=== PATIENT | female | born 1985 | race Two or more races ===

== ENCOUNTER → 2020-11-09 08:17 | Outpatient (BNVA) | payer OTHER, SELFPAY | PROVIDERS: PCP Internal Medicine; Visit Provider Physician Assistant ==

== ENCOUNTER 2022-02-21 11:01 | Day surgery (SDC) | payer OTHER, MEDICAID, SELFPAY ==
[2022-02-21 11:59] VITALS: BP 134/85; PULSE 100; RESP 18; TEMP 36.6; O2SAT 99
--- NOTE | 2022-02-21 13:26 | MHC.SHP ---
Pre-Procedural Eval Section A Date of Service: 02/21/22 The patient is an INPATIENT: No The History & Physical has been completed within 30 days and I have reviewed it.: Yes Section B Chief Complaint: TR trigger finger Allergies: Allergies Allergy/AdvReac Type Severity Reaction Status Date / Time No Known Allergies Allergy Verified 02/21/22 11:58 [No Known Allergies*] Plan I have reviewed the history and physical and performed a pertinent physical examination on my patient. No changes have occurred unless specified.
--- NOTE | 2022-02-21 13:26 | W.PM.OPN ---
Operative Note Operative Note Date of Service: 02/21/22 Narrative: Operative Note Preop diagnosis: 1. Left ring finger Trigger finger Postop diagnosis: 1. Left ring finger Trigger finger Procedure: 1. Left ring finger A1 cele release Surgeon: Elizabeth Cabrera MD Anesthesia: local block using 1% lidocaine with epinephrine Findings: No locking or catching after A1 cele release EBL: Less than 5 mL Tourniquet time: None Specimens: None Complications: None Disposition: Brought to recovery room in stable condition Plan: Follow-up for 10-14 days for wound check and suture removal Indications: The patient is 36 years old, with a left ring finger trigger finger that has been unresponsive to nonoperative management. The risks and benefits of operative treatment including but not limited to risk of damage to blood vessels, nerves, tendons, infection, persistent pain, persistent symptoms, recurrence or possible need for additional surgery were discussed with the patient and the patient wishes to proceed with surgery. Procedure: Once consent was obtained a local block was performed in the preop area using a combination of 1% lidocaine with epinephrine. The patient was then brought back to the operating suite and placed on the operative table in supine position. A tourniquet was applied to the proximal aspect of the left upper extremity and the limb was prepped and draped in a standard surgical fashion. Once assured that we had a good block, a 1.5 cm oblique incision was made centered over the A1 cele of the left ring finger . The incision was made through the skin to the subcutaneous tissues using a #15 blade. Careful dissection was made down to the level of the A1 cele using tenotomy scissors, with care being taken to protect the nearby neurovascular structures. A longitudinal incision was made in the A1 cele 1st using a #15 blade, then using tenotomy scissors under direct visualization. The A1 cele was noted to be thickened. Following our A1 cele release, we no longer saw any locking or catching of the digit with flexion and extension. Once satisfied with our A1 cele release the wound was copiously irrigated with normal saline and hemostasis was obtained with a brief period of local pressure. The skin edges were reapproximated with some 5.0 nylon suture material and a sterile dressing was applied. The patient appears to have tolerated the procedure well and with no complications. All digits were well vascularized at the conclusion of the case.
[2022-02-21 14:15] VITALS: BP 135/72; PULSE 102; RESP 20; O2SAT 99
== END 2022-02-21 14:21 | disposition home or self-care (01) ==
PROVIDERS: PCP Internal Medicine; Visit Provider Orthopaedic Surgery
PROC: (CPT 26055; principal; 2022-02-21 14:00)
DX: M65.342 Trigger finger, left ring finger (principal); E10.8 Type 1 diabetes mellitus with unspecified complications; Z79.4 Long term (current) use of insulin; Z96.41 Presence of insulin pump (external) (internal); N85.6 Intrauterine synechiae; E66.9 Obesity, unspecified; Z68.31 Body mass index [BMI] 31.0-31.9, adult; Z96.82 Presence of neurostimulator
CPT/HCPCS: 26055; J0171

== ENCOUNTER 2022-04-10 20:50 | Emergency (ER) | payer OTHER, MEDICAID, SELFPAY ==
[2022-04-10 20:58] VITALS: BP 157/78; PULSE 101; RESP 16; TEMP 37; O2SAT 100; BMI 29.2
--- NOTE | 2022-04-10 21:01 | ECG_ITS ---
Test Reason : PALPITATIONS Blood Pressure : / mmHG Vent. Rate : 103 BPM Atrial Rate : 103 BPM P-R Int : 116 ms QRS Dur : 072 ms QT Int : 350 ms P-R-T Axes : 055 036 026 degrees QTc Int : 458 ms Sinus tachycardia with Premature ventricular complexes or Fusion complexes Otherwise normal ECG When compared with ECG of 22-DEC-2017 20:11, Fusion complexes are now Present Premature ventricular complexes are now Present Nonspecific T wave abnormality no longer evident in Anterolateral leads Referred By: Generic ED Physician Electronically Signed By:LAKE PUCKETT
[2022-04-10 21:31] LABS: MANUAL DIFF FLAG NO
[2022-04-10 21:33] LABS: Basophils Percent Auto 0.6 % (0-2); Eosinophils Absolute Auto 0.2 X10*3/uL (0.0-0.4); Eosinophils Percent Auto 2.1 % (0-4); Hematocrit 34.8 % (37.0-47.0); Hemoglobin 11.7 g/dl (12.0-16.0); Imm Gran Abs Auto 0.03 X10*3/uL (0.00-0.03); Imm Gran Pct Auto 0.4 % (0.0-0.4); Lymphocytes Absolute Auto 2.5 X10*3/uL (1.2-4.9); Lymphocytes Percent Auto 34.6 % (20-40); Mean Corpuscular HGB Conc 33.6 g/dl (31.0-35.0); Mean Corpuscular Hemoglobin 29.8 pg (27.0-33.0); Mean Corpuscular Volume 88.5 fL (80.0-98.0); Mean Platelet Volume 9.3 fL (9.4-12.3); Monocytes Absolute Auto 0.5 X10*3/uL (0.1-1.2); Monocytes Percent Auto 7.2 % (2-11); Neutrophils Percent Auto 55.1 % (45-73); Platelet Count 289 X10*3/uL (160-400); Red Blood Count 3.93 X10*6/uL (4.20-5.50); Red Cell Distribution Width 12.9 % (11.0-16.0); White Blood Count 7.3 X10*3/uL (4.8-10.8)
[2022-04-10 21:52] LABS: Anion Gap 15 (12-20); Blood Urea Nitrogen 18 mg/dL (9-16); Calcium 9.2 mg/dL (8.4-10.2); Carbon Dioxide 23 mmol/L (22-29); Chloride 105 mmol/L (96-108); Creatinine Clr Calc Pharmacy 78.3; Estimated Glomerular Filt Rate > 60; Glucose Random 439 mg/dL (60-115); Potassium 4.1 mmol/L (3.3-5.1); Sodium 139 mmol/L (135-145)
[2022-04-10 21:54] LABS: Troponin-I High Sensitivity < 3.5 ng/L (<3.5-17.0)
[2022-04-10 22:07] LABS: Appearance Urine Clear; Color Urine Yellow; Glucose Urine UA >=1000 mg/dL (Negative); Leukocyte Esterase Urine Negative (Negative); Nitrite Urine Negative (Negative); Specific Gravity - Urine >= 1.030 (1.005-1.025); Urine Blood Negative (Negative); Urine Ketones Negative (Negative); Urine Protein Negative (Neg-Trace)
[2022-04-10 22:08] LABS: UPreg QC Valid YES; Urine Pregnancy NEGATIVE (NEGATIVE)
[2022-04-10 22:13] LABS: Bacteria Urine None Seen (None Seen); Hyaline Casts Urine 0-2 /LPF (0-2); RBC Urine 0-2 /HPF (0-2); Squamous Epithelial Cell Urine 0-2 /HPF (0-2); WBC Urine 0-5 /HPF (0-5)
== END 2022-04-11 00:20 | disposition left against medical advice (07) ==
LOC: HO.ED 04-11 00:19
PROVIDERS: Emergency Provider Emergency Medicine; PCP Nurse Practitioner Family
DX: R00.2 Palpitations (principal); R00.0 Tachycardia, unspecified; I49.3 Ventricular premature depolarization; E10.9 Type 1 diabetes mellitus without complications
CPT/HCPCS: 36415; 80048; 81001; 81025; 84484; 85025; 93005; 99283

== ENCOUNTER 2022-07-25 11:28 | Day surgery (SDC) | payer OTHER, MEDICAID, SELFPAY ==
--- NOTE | 2022-07-25 10:24 | W.PM.OPN ---
Operative Note Operative Note Date of Service: 07/25/22 Narrative: Operative Note Preop diagnosis: 1. Right middle finger Trigger finger Postop diagnosis: 1. Right middle finger Trigger finger Procedure: 1. Right middle finger A1 cele release Surgeon: Elizabeth Cabrera MD Anesthesia: local block using 1% lidocaine with epinephrine Findings: No locking or catching after A1 cele release EBL: Less than 5 mL Tourniquet time: None Specimens: None Complications: None Disposition: Brought to recovery room in stable condition Plan: Follow-up for 10-14 days for wound check and suture removal Indications: The patient is 37 years old, with a right middle finger trigger finger that has been unresponsive to nonoperative management. The risks and benefits of operative treatment including but not limited to risk of damage to blood vessels, nerves, tendons, infection, persistent pain, persistent symptoms, recurrence or possible need for additional surgery were discussed with the patient and the patient wishes to proceed with surgery. Procedure: Once consent was obtained a local block was performed in the preop area using a combination of 1% lidocaine with epinephrine. The patient was then brought back to the operating suite and placed on the operative table in supine position. A tourniquet was applied to the proximal aspect of the right upper extremity and the limb was prepped and draped in a standard surgical fashion. Once assured that we had a good block, a 1.5 cm oblique incision was made centered over the A1 cele of the right middle finger . The incision was made through the skin to the subcutaneous tissues using a #15 blade. Careful dissection was made down to the level of the A1 cele using tenotomy scissors, with care being taken to protect the nearby neurovascular structures. A longitudinal incision was made in the A1 cele 1st using a #15 blade, then using tenotomy scissors under direct visualization. The A1 cele was noted to be thickened. Following our A1 cele release, we no longer saw any locking or catching of the digit with flexion and extension. Once satisfied with our A1 cele release the wound was copiously irrigated with normal saline and hemostasis was obtained with a brief period of local pressure. The skin edges were reapproximated with some 5.0 nylon suture material and a sterile dressing was applied. The patient appears to have tolerated the procedure well and with no complications. All digits were well vascularized at the conclusion of the case.
[2022-07-25 12:11] VITALS: BMI 29.2
--- NOTE | 2022-07-25 13:12 | MHC.SHP ---
Pre-Procedural Eval Section A Date of Service: 07/25/22 The patient is an INPATIENT: No Changes since office visit: No Cold of Flu in the past 2 weeks, No New Medical Problems, No Changes in Medication and No Patient answered all questions The History & Physical has been completed within 30 days and I have reviewed it.: Yes Section B Chief Complaint: Trigger finger, right middle finger Allergies: Allergies Allergy/AdvReac Type Severity Reaction Status Date / Time No Known Allergies Allergy Verified 06/25/22 12:28 [No Known Allergies*] Plan I have reviewed the history and physical and performed a pertinent physical examination on my patient. No changes have occurred unless specified. Time Spent With Patient Time: Total time managing care of this patient today ____ minutes.
[2022-07-25 14:06] VITALS: BP 149/89; PULSE 97; RESP 18; O2SAT 100
== END 2022-07-25 14:15 | disposition home or self-care (01) ==
PROVIDERS: Visit Provider Orthopaedic Surgery
PROC: (CPT 26055; principal; 2022-07-25 14:10)
DX: M65.331 Trigger finger, right middle finger (principal); E10.8 Type 1 diabetes mellitus with unspecified complications; Z96.41 Presence of insulin pump (external) (internal); Z79.4 Long term (current) use of insulin; E66.9 Obesity, unspecified; Z68.29 Body mass index [BMI] 29.0-29.9, adult; N85.6 Intrauterine synechiae; Z96.82 Presence of neurostimulator; Z87.891 Personal history of nicotine dependence
CPT/HCPCS: 26055; J0171

== ENCOUNTER → 2022-08-07 13:52 | Outpatient (BNVA) | payer OTHER, MEDICAID, SELFPAY | PROVIDERS: Visit Provider Orthopaedic Surgery | DX: M65.331 Trigger finger, right middle finger (principal) ==

== ENCOUNTER 2022-12-09 23:31 | Emergency (ER) | payer OTHER, MEDICAID, SELFPAY ==
[2022-12-09 23:36] VITALS: BP 159/90; PULSE 80; PULSE 91; RESP 18; TEMP 36.4; O2SAT 95; O2SAT 99; BMI 25.8
[2022-12-10 01:18] LABS: MANUAL DIFF FLAG NO
[2022-12-10 01:24] LABS: Basophils Absolute Auto 0.1 X10*3/uL (0.0-0.2); Basophils Percent Auto 0.4 % (0-2); Eosinophils Absolute Auto 0.1 X10*3/uL (0.0-0.4); Eosinophils Percent Auto 0.3 % (0-4); Hematocrit 39.1 % (37.0-47.0); Hemoglobin 13.1 g/dl (12.0-16.0); Imm Gran Abs Auto 0.11 X10*3/uL (0.00-0.03); Imm Gran Pct Auto 0.6 % (0.0-0.4); Lymphocytes Absolute Auto 1.6 X10*3/uL (1.2-4.9); Lymphocytes Percent Auto 9.6 % (20-40); Mean Corpuscular HGB Conc 33.5 g/dl (31.0-35.0); Mean Corpuscular Hemoglobin 29.4 pg (27.0-33.0); Mean Corpuscular Volume 87.7 fL (80.0-98.0); Mean Platelet Volume 9.4 fL (9.4-12.3); Monocytes Absolute Auto 0.9 X10*3/uL (0.1-1.2); Monocytes Percent Auto 5.2 % (2-11); Neutrophils Absolute Auto 14.3 x10*3/uL (2.0-8.3); Neutrophils Percent Auto 83.9 % (45-73); Platelet Count 317 X10*3/uL (160-400); Red Blood Count 4.46 X10*6/uL (4.20-5.50); Red Cell Distribution Width 12.7 % (11.0-16.0)
--- NOTE | 2022-12-10 01:37 | MHC.EDTECH ---
Patient ambulated to BR with no assist to give UA, labs drawn and vitals were obtained. Call mancini in reach
[2022-12-10 01:43] VITALS: BP 153/87; PULSE 88; RESP 18; TEMP 36.5; O2SAT 100
[2022-12-10 01:52] LABS: Appearance Urine Cloudy; Color Urine Yellow; Glucose Urine UA 500 mg/dL (Negative); Leukocyte Esterase Urine Negative (Negative); Nitrite Urine Negative (Negative); PH 5.5 (5.0-9.0); Specific Gravity - Urine >= 1.030 (1.005-1.025); UMIC TRIGGER UACC YES; Urine Blood Negative (Negative); Urine Ketones 80 mg/dL (Negative); Urine Protein 30 (1+) mg/dL (Neg-Trace)
[2022-12-10 01:54] LABS: UPreg QC Valid YES; Urine Pregnancy NEGATIVE (NEGATIVE)
[2022-12-10 02:00] LABS: Alanine Aminotransferase 15 U/L (0-31); Albumin Level 4.3 g/dL (3.5-5.0); Alkaline Phosphatase 81 U/L (39-117); Anion Gap 14 (12-20); Aspartate Amino Transferase 16 U/L (5-31); Bilirubin Direct 0.1 mg/dL (0.0-0.5); Bilirubin Total 0.4 mg/dL (0.0-1.0); Blood Urea Nitrogen 11 mg/dL (9-16); Calcium 9.4 mg/dL (8.4-10.2); Carbon Dioxide 26 mmol/L (22-29); Chloride 103 mmol/L (96-108); Creatinine Clr Calc Pharmacy 106.9; Estimated Glomerular Filt Rate > 60; Glucose Random 166 mg/dL (60-115); Lipase 9 U/L (8-78); Potassium 4.1 mmol/L (3.3-5.1); Sodium 139 mmol/L (135-145); Total Protein 6.9 g/dL (6.5-8.0)
[2022-12-10 02:10] LABS: Bacteria Urine 4+ (None Seen); Calcium Oxalate Crystals Urine Present; Hyaline Casts Urine 0-2 /LPF (0-2); RBC Urine 0-2 /HPF (0-2); WBC Urine 0-5 /HPF (0-5)
[2022-12-10 03:58] VITALS: BP 144/88; PULSE 95; RESP 13; TEMP 36.7; O2SAT 99
--- NOTE | 2022-12-10 05:17 | ED_ITS ---
HPI - Abdominal Pain General Chief Complaint: Abdominal Pain Stated Complaint: VOMITING Time Seen by Provider: 12/10/22 01:52 History of Present Illness HPI narrative: Patient is a 37 year old female, presents today with having nausea vomiting diarrhea. Patient has a long history of diabetes. Baseline is on insulin. No fever no chills. Diarrhea is brown in color. Vomiting mostly consistent with food. Patient from home. Related Data Home Medications Medication Instructions Recorded Confirmed blood sugar diagnostic #10 ea 11/09/20 11/09/20 cholecalciferol (vitamin D3) 50 50 mcg PO DAILY 11/09/20 11/09/20 mcg (2,000 unit) capsule insulin lispro 100 unit/mL subcut 11/09/20 11/09/20 subcutaneous solution Previous Rx's Medication Instructions Recorded ibuprofen 600 mg tablet 600 mg PO Q6-8H PRN pain #20 tabs 02/21/22 hydrocodone 5 mg-acetaminophen 325 1 tab PO Q4-6H PRN pain #5 tabs 07/25/22 mg tablet Allergies Allergy/AdvReac Type Severity Reaction Status Date / Time No Known Allergies Allergy Verified 08/07/22 14:08 [No Known Allergies*] Review of Systems Review of Systems Positive nausea vomiting diarrhea generalized malaise Yes all other systems are reviewed and are negative PMFSH Past Medical History Attestation statement: The following information was validated with the patient. Medical History Asherman's syndrome History of episiotomy Obesity (BMI 30.0-34.9) Sacral nerve stimulator present Type 1 diabetes Surgical History History of partial hysterectomy Hx of section Family History Family History Mother Heart disease Hypertension Father No problems noted. Brother No problems noted. Brother No problems noted. Sister No problems noted. Sister No problems noted. Daughter No problems noted. Social History Social History Alcohol intake: never Patient Tobacco Use Status: Former Tobacco user Smoked in Last 30 Days: No Use of substances other than those prescribed or required for medical reasons: No Advance Directives: No Advance Directives Information Provided: Yes Patient : No Current occupational status: employed Current occupation: population health coordinator, [employer] rt hand Physical Exam ED Vital Signs: Vital Signs - 24 hr 12/09/22 23:36 12/10/22 01:43 12/10/22 03:58 Temperature 97.5 F 97.7 F 98.0 F Pulse Rate 91 88 95 Respiratory Rate 18 18 13 Blood Pressure 159/90 H 153/87 H 144/88 H Pulse Oximetry 95 100 99 Oxygen Delivery Method Room Air Room Air Room Air 12/10/22 06:00 Temperature 98.2 F Pulse Rate 87 Respiratory Rate 13 Blood Pressure 146/79 H Pulse Oximetry 98 Oxygen Delivery Method Room Air BMI result Body Mass Index 25.8 Appearance: Alert. Oriented X3. No acute distress. Eyes: Pupils equal, round and reactive to light. ENT: Pharynx normal. Neck: Normal inspection. Neck supple. No lymph nodes noted. No crepitus CVS: Normal heart rate and rhythm. Pulses normal. Normal S1 and S2 Respiratory: No respiratory distress. Breath sounds normal. No Wheezing. No rales Abdomen: Soft and nontender. No rigidity. No distention. good BS x4 Skin: Skin warm and dry. Normal skin color. Normal skin turgor. Extremities: No lower extremity edema. Neurovascular intact to all extremities. No Lacerations. No Rash Neuro: Oriented X 3. No motor deficit. No sensory deficit. Moving all exter mities. No slurred speech Medical Decision Making Medical Decision Making [facility] Narrative: Patient has nausea vomiting diarrhea. On exam patient abdomen is soft nontender. Given IV fluid and also Zofran for nausea with good relief of symptoms. Patient's labs showed a glucose of 166 with a normal bicarb normal anion gap. No evidence for DKA. Patient's electrolytes are otherwise unremarkable. test is negative. Urine showed no signs of infection. Differential Diagnosis Diabetic ketoacidosis , UTI, Lab Data [facility] Lab Attestation statement: I reviewed the patient's lab results. 12/10/22 01:10 12/10/22 01:35 Labs: Lab Results 12/10/22 12/10/22 12/10/22 Range/Units 01:10 01:35 01:43 WBC 17.0 H (4.8-10.8) X10*3/uL RBC 4.46 (4.20-5.50) X10*6/uL Hgb 13.1 (12.0-16.0) g/dl Hct 39.1 (37.0-47.0) % MCV 87.7 (80.0-98.0) fL MCH 29.4 (27.0-33.0) pg MCHC 33.5 (31.0-35.0) g/dl RDW 12.7 (11.0-16.0) % Plt Count 317 (160-400) X10*3/uL MPV 9.4 (9.4-12.3) fL Immature Gran % (Auto) 0.6 H (0.0-0.4) % Neut % (Auto) 83.9 H (45-73) % Lymph % (Auto) 9.6 L (20-40) % [place] % (Auto) 5.2 (2-11) % Eos % (Auto) 0.3 (0-4) % Baso % (Auto) 0.4 (0-2) % Lymph # (Auto) 1.6 (1.2-4.9) X10*3/uL [place] # (Auto) 0.9 (0.1-1.2) X10*3/uL Eos # (Auto) 0.1 (0.0-0.4) X10*3/uL Baso # (Auto) 0.1 (0.0-0.2) X10*3/uL Abs Immat Gran (auto) 0.11 H (0.00-0.03) X10*3/uL Absolute Neuts (auto) 14.3 H (2.0-8.3) x10*3/uL Absolute Nucleated RBC 0.000 (0.0-0.012) X10*3/uL Nucleated RBC % (auto) 0.0 (0.0-0.2) /100WBC Sodium 139 (135-145) mmol/L Potassium 4.1 (3.3-5.1) mmol/L Chloride 103 (96-108) mmol/L Carbon Dioxide 26 (22-29) mmol/L Anion Gap 14 (12-20) BUN 11 (9-16) mg/dL Creatinine 0.72 (0.5-1.4) mg/dL Estim Creat Clear Calc 106.9 Estimated GFR > 60 Random Glucose 166 H (60-115) mg/dL Calcium 9.4 (8.4-10.2) mg/dL Total Bilirubin 0.4 (0.0-1.0) mg/dL Direct Bilirubin 0.1 (0.0-0.5) mg/dL AST 16 (5-31) U/L ALT 15 (0-31) U/L Alkaline Phosphatase 81 (39-117) U/L Total Protein 6.9 (6.5-8.0) g/dL Albumin 4.3 (3.5-5.0) g/dL Lipase 9 (8-78) U/L Urine Color Yellow Urine Appearance Cloudy Urine pH 5.5 (5.0-9.0) Ur Specific [place] >= 1.030 H (1.005-1.025) Urine Protein 30 (1+) H (Neg-Trace) mg/dL Urine Glucose (UA) 500 H (Negative) mg/dL Urine Ketones 80 (Negative) mg/dL Urine Blood Negative (Negative) Urine Nitrite Negative (Negative) Ur Leukocyte Esterase Negative (Negative) Urine RBC 0-2 (0-2) /HPF Urine WBC 0-5 (0-5) /HPF Ur Squamous Epith Cells 6-10 (0-2) /HPF Calcium Oxalate Crystal Present Urine Bacteria 4+ (None Seen) Hyaline Casts 0-2 (0-2) /LPF Urine Test (NEGATIVE) 12/10/22 Range/Units 01:43 WBC (4.8-10.8) X10*3/uL RBC (4.20-5.50) X10*6/uL Hgb (12.0-16.0) g/dl Hct (37.0-47.0) % MCV (80.0-98.0) fL MCH (27.0-33.0) pg MCHC (31.0-35.0) g/dl RDW (11.0-16.0) % Plt Count (160-400) X10*3/uL MPV (9.4-12.3) fL Immature Gran % (Auto) (0.0-0.4) % Neut % (Auto) (45-73) % Lymph % (Auto) (20-40) % [place] % (Auto) (2-11) % Eos % (Auto) (0-4) % Baso % (Auto) (0-2) % Lymph # (Auto) (1.2-4.9) X10*3/uL [place] # (Auto) (0.1-1.2) X10*3/uL Eos # (Auto) (0.0-0.4) X10*3/uL Baso # (Auto) (0.0-0.2) X10*3/uL Abs Immat Gran (auto) (0.00-0.03) X10*3/uL Absolute Neuts (auto) (2.0-8.3) x10*3/uL Absolute Nucleated RBC (0.0-0.012) X10*3/uL Nucleated RBC % (auto) (0.0-0.2) /100WBC Sodium (135-145) mmol/L Potassium (3.3-5.1) mmol/L Chloride (96-108) mmol/L Carbon Dioxide (22-29) mmol/L Anion Gap (12-20) BUN (9-16) mg/dL Creatinine (0.5-1.4) mg/dL Estim Creat Clear Calc Estimated GFR Random Glucose (60-115) mg/dL Calcium (8.4-10.2) mg/dL Total Bilirubin (0.0-1.0) mg/dL Direct Bilirubin (0.0-0.5) mg/dL AST (5-31) U/L ALT (0-31) U/L Alkaline Phosphatase (39-117) U/L Total Protein (6.5-8.0) g/dL Albumin (3.5-5.0) g/dL Lipase (8-78) U/L Urine Color Urine Appearance Urine pH (5.0-9.0) Ur Specific [place] (1.005-1.025) Urine Protein (Neg-Trace) mg/dL Urine Glucose (UA) (Negative) mg/dL Urine Ketones (Negative) mg/dL Urine Blood (Negative) Urine Nitrite (Negative) Ur Leukocyte Esterase (Negative) Urine RBC (0-2) /HPF Urine WBC (0-5) /HPF Ur Squamous Epith Cells (0-2) /HPF Calcium Oxalate Crystal Urine Bacteria (None Seen) Hyaline Casts (0-2) /LPF Urine Test NEGATIVE (NEGATIVE) Chronic Conditions Patient?s care impacted by: Diabetes Medications Administered Discontinued Medications Generic Name Dose Route Start Last Admin Trade Name Freq PRN Reason Stop Dose Admin Sodium Chloride 1,000 mls @ 999 mls/hr 12/10/22 05:15 12/10/22 06:42 Ns IV 12/10/22 06:15 Infused .Q1H1M RADHA Infusion Ondansetron HCl 4 mg 12/10/22 05:14 12/10/22 05:40 Ondansetron Hcl 4 Mg/2 Ml Vial IVPUSH 12/10/22 05:15 4 mg ONCE ONE Administration Discharge Plan Discharge Clinical Impression: Vomiting Patient Disposition: Home, Self-Care Instructions: Acute Nausea and Vomiting (ED) Prescriptions: No Action ibuprofen 600 mg tablet 600 mg PO Q6-8H PRN (Reason: pain) Qty: 20 0RF hydrocodone-acetaminophen 5-325 mg tablet 1 tab PO Q4-6H PRN (Reason: pain) Qty: 5 0RF Rx Instructions: Partial Fill upon patient request. insulin lispro 100 unit/mL solution subcut (DME) Accu-Chek Guide test strips Strip See Rx Instructions .ROUTE .MEDSUPPLY Qty: 10 Rx Instructions: As directed cholecalciferol (vitamin D3) 50 mcg (2,000 unit) capsule 50 mcg PO DAILY Referrals: [facility] [Primary Care Provider] - 2 days
[2022-12-10] MEDS: ondansetron HCL 4 MG/2 ML VIAL IVPUSH (05:40)
[2022-12-10] MEDS: 0.9 % Sodium Chloride 1,000 ML 999 ML IV (05:40)
[2022-12-10 06:00] VITALS: BP 146/79; PULSE 87; RESP 13; TEMP 36.8; O2SAT 98
== END 2022-12-10 06:59 | disposition home or self-care (01) ==
PROVIDERS: Emergency Provider Emergency Medicine Emergency Medical Services
DX: R11.2 Nausea with vomiting, unspecified (principal); E10.8 Type 1 diabetes mellitus with unspecified complications; Z79.4 Long term (current) use of insulin
CPT/HCPCS: 36415; 80048; 80076; 81001; 81025; 83690; 85025; 96361; 96374; 99284; J2405

== ENCOUNTER 2023-05-06 16:24 | Outpatient (REF) | payer OTHER, MEDICAID, SELFPAY ==
[2023-05-06 17:50] LABS: Appearance Urine Clear; Color Urine Yellow; Glucose Urine UA 100 mg/dL (Negative); Leukocyte Esterase Urine Small (1+) (Negative); Nitrite Urine Negative (Negative); PH 6.5 (5.0-9.0); UMIC TRIGGER UACC YES; Urine Blood Negative (Negative); Urine Ketones 15 mg/dL (Negative); Urine Protein Negative (Neg-Trace)
[2023-05-06 17:55] LABS: Bacteria Urine 3+ (None Seen); Hyaline Casts Urine 0-2 /LPF (0-2); RBC Urine 0-2 /HPF (0-2); UACC Culture Trigger YES
== END 2023-05-06 16:25 | disposition home or self-care (01) ==
LOC: HO.LAB 16:24
PROVIDERS: PCP Nurse Practitioner Family; Visit Provider Nurse Practitioner Family
DX: R39.9 Unspecified symptoms and signs involving the genitourinary system (principal)
CPT/HCPCS: 81001; 87086

== ENCOUNTER 2023-05-20 14:20 | Outpatient (AMB) | payer OTHER, MEDICAID, SELFPAY ==
[2023-05-20 14:38] VITALS: BMI 34.4
--- NOTE | 2023-05-20 14:38 | MHC.OFFVIS ---
Intake Vital Signs 05/20/23 14:38 Height 5 ft Weight 176 lb BMI 34.4 Intake Visit Reasons: Newprob-LT hand MF trigger finger Intake Note: Ekta 38 yr old right hand dominant female presents today for a new problem visit. Hx of right MF trigger release in 07/2022 and left RF trigger release done 02/2022. States she is now having locking of her right middle finger. States locking started about 2-3 months ago and would like to have surgery. A1C done recently in Apr ~ 7.5. Allergies No Known Allergies [No Known Allergies*] Allergy (Verified 05/20/23 14:38) HPI Newprob-LT hand MF trigger finger HPI Details Ekta is a 38 year old right hand dominant woman who presents with complaints of left middle finger locking. She has a hx of left ring finger release, DOS: 02/21/22, and right middle finger release, DOS: 07/25/22, with good results. She complains of painful locking of her left middle finger for ~3 months and would like to discuss treatment. She also says she feels the beginnings of a trigger finger in her right small finger and bilateral thumbs. She denies any locking of these fingers but is worried this may happen soon. She also complains of numbness in her bilateral. Symptoms intermittent, and occasional, worse at night and first thing in the mornings. She is a Diabetic, she says her most recent HgA1c was 7.5% in 04/2023 [facility] Medical History Asherman's syndrome History of episiotomy Obesity (BMI 30.0-34.9) Sacral nerve stimulator present Type 1 diabetes Surgical History History of partial hysterectomy Hx of section Family History Mother Heart disease Hypertension Father No problems noted. Brother No problems noted. Brother No problems noted. Sister No problems noted. Sister No problems noted. Daughter No problems noted. Social History (Updated 01/09/23 @ 13:08 by JALNY Carrington) Housing: Apartment Alcohol intake: never Patient Tobacco Use Status: Former Tobacco user e-Cigarette/Vaping Use: Never Used service: No Current occupational status: employed Current occupation: population health coordinator, [employer] rt hand Cognitive needs: No Hearing needs: No Vision needs: No Review of Systems Const All systems reviewed & are unremarkable except as noted in HPI and below Physical Exam Vital Signs: BMI result Body Mass Index 34.4 Const General: no acute distress and alert Orientation/consciousness: patient oriented x3 Neuro General: patient oriented x3 Extrem Other: Evaluation of Left Upper Extremity: The patient is alert, oriented, and in no acute distress Neuro: Median, Ulnar, Radial nerves motor and sensory intact and sensation is normal to the tips of all digits Vascular: Cap refill brisk ROM: She can make a fist and extend all her digits Visible and palpable locking and catching of the middle finger Tender over the a1 cele of the middle finger Psych Appearance: grossly normal Affect: normal affect Attitude: cooperative Assessment & Plan Assessment & Plan (1) Trigger finger, right middle finger: Code(s): M65.331 - Trigger finger, right middle finger (2) Trigger finger, left ring finger: Code(s): M65.342 - Trigger finger, left ring finger (3) Trigger middle finger of left hand: Code(s): M65.332 - Trigger finger, left middle finger (4) Type 1 diabetes: Comment: dx'd 1997, insulin pump since 2011, sees endo once/yr Dr. Woody, has continuous glucometer Code(s): E10.9 - Type 1 diabetes mellitus without complications (5) Bilateral hand numbness: Code(s): R20.0 - Anesthesia of skin Plan Assessment & Plan: 1. Left middle finger trigger finger I educated her about this condition I discussed operative and non-operative treatment options The patient would like to proceed with surgery The risks and benefits of operative treatment were discussed with the patient and the patient wishes to proceed with surgery. These risks include, but are not limited to risk of damage to blood vessels, nerves, tendons, infection, recurrence, incomplete relief of preoperative symptoms, persistent pain, possible need for further surgery and the risks associated with regional blocks and anesthesia. The plan is to take the patient to the operating room sometime in the next few weeks for the following procedures: 1. Left middle trigger finger release, under local All of the preoperative paperwork including the consent was filled out today. All the patient's questions were answered. The patient understands that they will be contacted by our production planner scheduler soon to schedule this procedure She denies blood thinners, asthma, heart, lung, kidney issues She is a Diabetic, her most recent HgA1c was 7.5% in 04/26 2. Bilateral hand numbness Symptoms intermittent and occasional, worse at night I ordered a NCS to assess for peripheral neuropathy She will follow up when completed for review 3. Right middle trigger finger, S/P release DOS: 07/25/22 With good resolution 4. Left ring trigger finger, S/P release DOS: 02/21/22 With good resolution Scribed for Elizabeth Cabrera MD by Javad Shea, medical affairs specialist, on 05/20/23 at 2:50 PM, EST. Orders: Orders NE nerve conduction velocity Today R20.0 - Anesthesia of skin, R20.2 - Paresthesia of skin Coding Level of Care Code Est Pt Level 4 (21930) Diagnoses Trigger finger, right middle finger M65.331 Trigger finger, left ring finger M65.342 Trigger middle finger of left hand M65.332 Type 1 diabetes E10.9 Bilateral hand numbness R20.0
== END 2023-05-20 14:57 | disposition home or self-care (01) ==
PROVIDERS: Visit Provider Orthopaedic Surgery
DX: M65.331 Trigger finger, right middle finger (principal); M65.342 Trigger finger, left ring finger; M65.332 Trigger finger, left middle finger; R20.0 Anesthesia of skin
CPT/HCPCS: 99214

== ENCOUNTER → 2023-05-20 14:20 | Outpatient (BNVA) | payer OTHER, MEDICAID, SELFPAY | PROVIDERS: Visit Provider Orthopaedic Surgery ==

== ENCOUNTER 2023-07-11 14:14 | Outpatient (REF) | payer OTHER, MEDICAID, SELFPAY ==
--- NOTE | 2023-07-11 14:16 | EMG_ITS ---
Chief complaint: On and off numbness in in fingers when waking up in the morning Reason for referral: Evaluate for Carpal Tunnel Syndrome Referred by: Dr. Cabrera Procedure done: Bilateral upper extremities NCS/EMG Precautions and/or limitations: None The limb temperature was monitored continuously and remained between 32-36 degrees C during the performance of the NCS. Nerve Conduction Studies Anti Sensory Summary Table ?Stim Site NR Onset (ms) Norm Onset (ms) Peak (ms) Norm Peak (ms) O-P Amp (?V) Norm O-P Amp Site1 Site2 Delta-0 (ms) Dist (cm) Ponce (m/s) Norm Ponce (m/s) Left Median Anti Sensory (2nd Digit) Wrist ? 2.8 3.3 <3.6 33.3 >10 Wrist 2nd Digit 2.8 14.0 50 Right Median Anti Sensory (2nd Digit) Wrist ? 2.5 3.3 <3.6 38.4 >10 Wrist 2nd Digit 2.5 14.0 56 Left Ulnar Anti Sensory (5th Digit) Wrist ? 2.6 3.2 <3.7 11.1 >15.0 Wrist 5th Digit 2.6 14.0 54 Right Ulnar Anti Sensory (5th Digit) Wrist ? 1.3 3.1 <3.7 16.8 >15.0 Wrist 5th Digit 1.3 14.0 108 Motor Summary Table ?Stim Site NR Onset (ms) Norm Onset (ms) O-P Amp (mV) Norm O-P Amp iAmp (mV) Amp (1st) (%) Site1 Site2 Delta-0 (ms) Dist (cm) Ponce (m/s) Norm Ponce (m/s) Left Median Motor (Abd Poll Brev) Wrist ? 3.1 <3.9 12.4 >4.5 14.4 100.0 Elbow Wrist 3.8 21.0 55 >45 Elbow ? 6.9 12.1 14.2 97.6 Right Median Motor (Abd Poll Brev) Wrist ? 3.0 <3.9 13.9 >4.5 15.9 100.0 Elbow Wrist 3.9 19.0 49 >45 Elbow ? 6.9 13.9 16.1 100.0 Left Ulnar Motor (Abd Dig Minimi) Wrist ? 2.6 <3.0 7.7 >5 9.8 100.0 B Elbow Wrist 2.9 17.0 59 >45 B Elbow ? 5.5 7.2 9.1 93.5 A Elbow B Elbow 1.6 10.0 63 >45 A Elbow ? 7.1 7.3 8.9 94.8 Right Ulnar Motor (Abd Dig Minimi) Wrist ? 2.7 <3.0 7.0 >5 9.0 100.0 B Elbow Wrist 2.9 16.0 55 >45 B Elbow ? 5.6 7.0 8.9 100.0 A Elbow B Elbow 1.4 10.0 71 >45 A Elbow ? 7.0 6.9 8.5 98.6 Comparison Summary Table ?Stim Site NR Peak (ms) Norm Peak (ms) P-T Amp (?V) Site1 Site2 Delta-P (ms) Norm Delta (ms) Right Median/Radial Dig I Comparison (Digit 1 - 10cm) Median ? 2.7 <2.9 72.3 Median Radial 0.1 Radial ? 2.8 <2.8 10.8 EMG ?Side Muscle Nerve Root Ins Act Fibs Psw Amp Dur Poly Recrt Int Pat Comment Right 1stDorInt Ulnar C8-T1 Nml Nml Nml Nml Nml 0 Nml Complete Right FlexCarRad Median C6-7 Nml Nml Nml Nml Nml 0 Nml Complete Right Biceps Musculocut C5-6 Nml Nml Nml Nml Nml 0 Nml Complete Right Triceps Radial C6-7-8 Nml Nml Nml Nml Nml 0 Nml Complete Right Deltoid Axillary C5-6 Nml Nml Nml Nml Nml 0 Nml Complete Left 1stDorInt Ulnar C8-T1 Nml Nml Nml Nml Nml 0 Nml Complete Left FlexCarRad Median C6-7 Nml Nml Nml Nml Nml 0 Nml Complete Left Biceps Musculocut C5-6 Nml Nml Nml Nml Nml 0 Nml Complete Left Triceps Radial C6-7-8 Nml Nml Nml Nml Nml 0 Nml Complete Left Deltoid Axillary C5-6 Nml Nml Nml Nml Nml 0 Nml Complete FINDINGS: All motor and sensory nerves tested showed normal latencies, amplitudes and conduction velocities. Concentric needle EMG was performed in selected muscles of the bilateral upper extremities. Study did not reveal signs of electric abnormalities as shown in the table below. IMPRESSION: 1. This is a normal study. 2. There is no electrodiagnostic evidence for median neuropathy, ulnar neuropathy, brachial plexopathy, or cervical radiculopathy. Thank you for your kind referral. Suzanne Vega MD, KASANDRA Board Certified, [place] [employer] and [employer] (ABPMR) Board Certified, [place] Board [employer] Electrodiagnostic [employer] (ABEM) CODIN [id number] x2 MTDD
== END 2023-07-11 14:15 | disposition home or self-care (01) ==
LOC: HO.NEURO 14:14
PROVIDERS: Visit Provider Orthopaedic Surgery
DX: R20.0 Anesthesia of skin (principal); R20.2 Paresthesia of skin
CPT/HCPCS: 95886; 95911

== ENCOUNTER → 2023-07-11 14:16 | Outpatient (BNV) | payer OTHER, MEDICAID, SELFPAY | PROVIDERS: Visit Provider Physical Medicine & Rehabilitation | DX: R20.2 Paresthesia of skin (principal) | CPT/HCPCS: 95886; 95911 ==

== ENCOUNTER 2023-09-15 09:21 | Day surgery (SDC) | payer OTHER, MEDICAID, SELFPAY ==
[2023-09-15 10:33] VITALS: BP 111/63; PULSE 99; RESP 18; TEMP 36.6; O2SAT 98
[2023-09-15 10:46] VITALS: BMI 35.9
--- NOTE | 2023-09-15 12:49 | P.OP_ITS ---
Operative Note Operative Note Date of Service: 09/15/23 Narrative: Operative Note Preop diagnosis: 1. Left middle finger Trigger finger Postop diagnosis: 1. Left middle finger Trigger finger Procedure: 1. Left middle finger A1 cele release Surgeon: Elizabeth Cabrera MD Anesthesia: local block using 1% lidocaine with epinephrine Findings: No locking or catching after A1 cele release EBL: Less than 5 mL Tourniquet time: None Specimens: None Complications: None Disposition: Brought to recovery room in stable condition Plan: Follow-up for 10-14 days for wound check and suture removal Indications: The patient is 38 years old, with a left middle finger trigger finger that has been unresponsive to nonoperative management. The risks and benefits of operative treatment including but not limited to risk of damage to blood vessels, nerves, tendons, infection, persistent pain, persistent symptoms, recurrence or possible need for additional surgery were discussed with the patient and the patient wishes to proceed with surgery. Procedure: Once consent was obtained a local block was performed in the preop area using a combination of 1% lidocaine with epinephrine. The patient was then brought back to the operating suite and placed on the operative table in supine position. The left upper extremity was prepped and draped in a standard surgical fashion. Once assured that we had a good block, a 1.5 cm oblique incision was made cente red over the A1 cele of the left middle finger . The incision was made through the skin to the subcutaneous tissues using a #15 blade. Careful dissection was made down to the level of the A1 cele using tenotomy scissors, with care being taken to protect the nearby neurovascular structures. A longitudinal incision was made in the A1 cele 1st using a #15 blade, then using tenotomy scissors under direct visualization. The A1 cele was noted to be thickened. Following our A1 cele release, we no longer saw any locking or catching of the digit with flexion and extension. Once satisfied with our A1 clee release the wound was copiously irrigated with normal saline and hemostasis was obtained with a brief period of local pressure. The skin edges were reapproximated with some 5.0 nylon suture material and a sterile dressing was applied. The patient appears to have tolerated the procedure well and with no complications. All digits were well vascularized at the conclusion of the case.
--- NOTE | 2023-09-15 12:49 | MHC.SHP ---
Pre-Procedural Eval Section A - 24 Hr Update-Section A only Date of Service: 09/15/23 The patient is an INPATIENT: No Changes since office visit: No Cold of Flu in the past 2 weeks, No New Medical Problems, No Changes in Medication and No Patient answered all questions The patient has been examined within 24 hours of the surgical procedure. The History & Physical has been completed within 30 days and I have reviewed it.: Yes Section B - Complete if H&P > 30 days Chief Complaint: Trigger finger, left middle finger Allergies: Allergies Allergy/AdvReac Type Severity Reaction Status Date / Time No Known Allergies Allergy Verified 09/15/23 10:57 [No Known Allergies*] Plan I have reviewed the history and physical and performed a pertinent physical examination on my patient. No changes have occurred unless specified. Time Spent With Patient Time: Total time managing care of this patient today ____ minutes.
[2023-09-15 13:24] VITALS: BP 168/84; PULSE 105; RESP 18; TEMP 36.4; O2SAT 98
== END 2023-09-15 13:26 | disposition home or self-care (01) ==
PROVIDERS: PCP Internal Medicine; Visit Provider Orthopaedic Surgery
PROC: (CPT 26055; principal; 2023-09-15 11:30)
DX: M65.332 Trigger finger, left middle finger (principal); M24.842 Other specific joint derangements of left hand, not elsewhere classified; R20.0 Anesthesia of skin; E10.9 Type 1 diabetes mellitus without complications; Z79.4 Long term (current) use of insulin; Z96.41 Presence of insulin pump (external) (internal); E66.9 Obesity, unspecified; Z68.34 Body mass index [BMI] 34.0-34.9, adult; N85.6 Intrauterine synechiae; Z98.890 Other specified postprocedural states; Z96.82 Presence of neurostimulator; Z87.891 Personal history of nicotine dependence
CPT/HCPCS: 26055; J0171

== ENCOUNTER → 2023-09-15 09:21 | Outpatient (BNV) | payer OTHER, MEDICAID, SELFPAY | PROVIDERS: PCP Internal Medicine; Visit Provider Orthopaedic Surgery | DX: M65.332 Trigger finger, left middle finger (principal) | CPT/HCPCS: 26055 ==

== ENCOUNTER 2023-09-24 11:43 | Outpatient (AMB) | payer OTHER, MEDICAID, SELFPAY ==
--- NOTE | 2023-09-24 12:07 | MHC.OFFVIS ---
Intake Vital Signs 09/24/23 12:08 Height 5 ft Weight 184 lb BMI 35.9 Intake Visit Reasons: PO-Lt MF Trigger 07/31 Intake Note: Ekta 38 yr old female presents today for her P/O visit for her left middle finger trigger release. States she is working on making a full close fist but is limited due to stitches. Sutures removed and steri strips applied. Allergies No Known Allergies [No Known Allergies*] Allergy (Verified 09/15/23 10:57) HPI PO-Lt MF Trigger 07/31 HPI Details Ekta is a 38 year old right hand dominant woman who presents S/P left middle finger trigger release, DOS: 09/15/23 She says she is doing well and her locking has resolved. She reports some stiffness and difficulty making a fist. She reports some pain in her bilateral index fingers. [facility] Medical History Asherman's syndrome History of episiotomy Obesity (BMI 30.0-34.9) Sacral nerve stimulator present Type 1 diabetes Surgical History History of partial hysterectomy Hx of section Family History Mother Heart disease Hypertension Father No problems noted. Brother No problems noted. Brother No problems noted. Sister No problems noted. Sister No problems noted. Daughter No problems noted. Social History Housing: Apartment Alcohol intake: never Patient Tobacco Use Status: Former Tobacco user e-Cigarette/Vaping Use: Never Used service: No Current occupational status: employed Current occupation: population health coordinator, [employer] rt hand Cognitive needs: No Hearing needs: No Vision needs: No Review of Systems Const All systems reviewed & are unremarkable except as noted in HPI and below Physical Exam Vital Signs: BMI result Body Mass Index 35.9 Const General: cooperative, healthy appearing and no acute distress Orientation/consciousness: patient oriented x3 HEENT Head: Yes normocephalic and Yes atraumatic Eyes EOM: EOMs intact bilaterally Resp Effort & Inspection: normal respiratory effort and able to speak in complete sentences Cardio Jugular venous distension: no JVD Skin General skin exam: turgor normal Rashes: no rashes Neuro General: patient oriented x3 Extrem Other: The patient was alert oriented and in no acute distress The incision is healing well with no erythema drainage or evidence of infection. Sutures removed and Steri-Strips applied She can make a fist and extend all her digits No locking or catching Sensation is intact to the tips of all digits Cap refill is brisk Psych Appearance: grossly normal Affect: normal affect Attitude: cooperative Assessment & Plan Assessment & Plan (1) Trigger finger, left ring finger: Code(s): M65.342 - Trigger finger, left ring finger (2) Trigger middle finger of left hand: Code(s): M65.332 - Trigger finger, left middle finger (3) Type 1 diabetes: Comment: dx'd 1997, insulin pump since 2011, sees endo once/yr Dr. Woody, has continuous glucometer Code(s): E10.9 - Type 1 diabetes mellitus without complications (4) Bilateral hand numbness: Code(s): R20.0 - Anesthesia of skin Plan Assessment & Plan: 1. Left middle finger trigger finger, S/P release DOS: 09/15/23 The patient appears to be doing well post-operatively I educated her about the post-operative course I explained the signs and symptoms of infection I discussed activity modifications, she is to lift nothing heavier than a cellphone for the next two weeks She will perform gentle ROM exercises at home She should avoid any underwater activities for the next 5 days She should gently massage about the incision site to reduce the risk of hypersensitivity She can follow up prn 2. Bilateral hand numbness Symptoms intermittent and occasional, worse at night Not mentioned today She may follow up when completed for review 3. Right middle trigger finger, S/P release DOS: 07/25/22 With good resolution 4. Left ring trigger finger, S/P release DOS: 02/21/22 With good resolution Scribed for Elizabeth Cabrera MD by Javad Shea, medical collector, on 09/24/23 at 12:15 PM, EST. Coding Level of Care Code Global (63294) Diagnoses Trigger finger, left ring finger M65.342 Trigger middle finger of left hand M65.332 Type 1 diabetes E10.9 Bilateral hand numbness R20.0
[2023-09-24 12:08] VITALS: BMI 35.9
== END 2023-09-24 14:16 | disposition home or self-care (01) ==
PROVIDERS: Visit Provider Orthopaedic Surgery
DX: M65.342 Trigger finger, left ring finger (principal); M65.332 Trigger finger, left middle finger; E10.9 Type 1 diabetes mellitus without complications; R20.0 Anesthesia of skin
CPT/HCPCS: 99024

== ENCOUNTER → 2023-09-24 11:43 | Outpatient (BNVA) | payer OTHER, MEDICAID, SELFPAY | PROVIDERS: Visit Provider Orthopaedic Surgery ==

== ENCOUNTER 2024-03-09 09:45 | Outpatient (REF) | payer OTHER, MEDICAID, SELFPAY ==
[2024-03-09 11:19] LABS: MANUAL DIFF FLAG NO
[2024-03-09 11:27] LABS: Basophils Percent Auto 0.5 % (0-2); Eosinophils Absolute Auto 0.2 X10*3/uL (0.0-0.4); Eosinophils Percent Auto 2.1 % (0-4); Hematocrit 37.7 % (37.0-47.0); Hemoglobin 12.6 g/dl (12.0-16.0); Imm Gran Abs Auto 0.03 X10*3/uL (0.00-0.03); Imm Gran Pct Auto 0.3 % (0.0-0.4); Lymphocytes Absolute Auto 2.3 X10*3/uL (1.2-4.9); Lymphocytes Percent Auto 25.6 % (20-40); Mean Corpuscular HGB Conc 33.4 g/dl (31.0-35.0); Mean Corpuscular Hemoglobin 29.6 pg (27.0-33.0); Mean Corpuscular Volume 88.5 fL (80.0-98.0); Mean Platelet Volume 10.6 fL (9.4-12.3); Monocytes Absolute Auto 0.6 X10*3/uL (0.1-1.2); Monocytes Percent Auto 6.3 % (2-11); Neutrophils Absolute Auto 5.7 x10*3/uL (2.0-8.3); Neutrophils Percent Auto 65.2 % (45-73); Platelet Count 289 X10*3/uL (160-400); Red Blood Count 4.26 X10*6/uL (4.20-5.50); Red Cell Distribution Width 12.6 % (11.0-16.0); White Blood Count 8.8 X10*3/uL (4.8-10.8)
[2024-03-09 12:00] LABS: Anion Gap 13 (12-20); Blood Urea Nitrogen 8 mg/dL (9-16); Calcium 9.6 mg/dL (8.4-10.2); Carbon Dioxide 26 mmol/L (22-29); Chloride 104 mmol/L (96-108); Estimated Glomerular Filt Rate > 60; Glucose Random 233 mg/dL (60-115); Iron 53 mcg/dL (30-160); Percent Iron Saturation 23 % (15-50); Potassium 3.8 mmol/L (3.3-5.1); Sodium 139 mmol/L (135-145); Total Iron Binding Capacity 227 mcg/dL (228-428); Unsaturated Iron Binding 174 ug/dL
[2024-03-09 12:01] LABS: TSH reflex Free T4 0.28 uIU/mL (0.32-4.0); Vitamin D 25-OH Total 45.7 ng/mL (>30)
[2024-03-09 12:31] LABS: Free T4 (Free Thyroxine) 1.02 ng/dL (0.71-1.85)
[2024-03-09 14:36] LABS: CDiff Gene PCR NEGATIVE (Negative)
[2024-03-09 14:55] LABS: Adenovirus F 40/41 Not Detected (Not Detect.); Astrovirus Not Detected (Not Detect.); Campylobacter Not Detected (Not Detect.); Cryptosporidium Not Detected (Not Detect.); Cyclospora cayetanensis Not Detected (Not Detect.); E. coli EAEC Not Detected (Not Detect.); E. coli EPEC Not Detected (Not Detect.); E. coli ETEC Not Detected (Not Detect.); E. coli STEC Not Detected (Not Detect.); Entamoeba histolytica Not Detected (Not Detect.); Giardia lamblia Not Detected (Not Detect.); Norovirus GI/GII Not Detected (Not Detect.); Plesiomonas shigelloides Not Detected (Not Detect.); Rotavirus A Not Detected (Not Detect.); Salmonella Not Detected (Not Detect.); Sapovirus Not Detected (Not Detect.); Shigella sp./EIEC Not Detected (Not Detect.); Vibrio Not Detected (Not Detect.); Vibrio Cholerae Not Detected (Not Detect.); Yersinia enterocolitica Not Detected (Not Detect.)
== END 2024-03-09 09:46 | disposition home or self-care (01) ==
LOC: HO.HHCL 09:45
PROVIDERS: Internal Medicine; Visit Provider Nurse Practitioner Primary Care
DX: R53.83 Other fatigue (principal); R19.5 Other fecal abnormalities
CPT/HCPCS: 36415; 80048; 82306; 83540; 84439; 84443; 85025; 87493; 87507

== ENCOUNTER 2024-11-02 10:50 | Outpatient (AMB) | payer OTHER, MEDICAID, SELFPAY ==
--- NOTE | 2024-11-02 11:38 | A.OFFVIS_ITS ---
Vital Signs 11/02/24 11:43 Height 5 ft Weight 176 lb BMI 34.4 Intake Visit Reasons: O/V RT IF locking Intake Note: Ekta 38 year old right hand dominant woman presents today for her right index finger. States she has a history of trigger finger and has had surgery for them in the past. She has a Hx of left middle finger trigger release on 09/15/23 and left ring finger release 02/21/22, and right middle finger release on 07/25/22. States she would like to discuss surgery. Last A1C done in [facility] -8.0. Allergies No Known Allergies [No Known Allergies*] Allergy (Verified 11/02/24 11:45) HPI HPI O/V RT IF locking : Details: Ekta is a 39 year old right hand dominant woman who returns with a new complaint of a right index trigger finger. She complains of painful locking & catching of the index finger. She says this is occurring in her left index finger as well, but her primary complaint is of her right index finger today She has a Hx of multiple trigger finger releases in the past, with good relief. She is a Diabetic, her last HgA1c was 9.1% on 06/25/24. She say she had an issue with her insurance and receiving her Diabetes supplies, but this was corrected sometime in July and she says she has been doing better since. [facility] Medical History Asherman's syndrome History of episiotomy Obesity (BMI 30.0-34.9) Sacral nerve stimulator present Type 1 diabetes Surgical History History of partial hysterectomy Hx of section Family History Mother Heart disease Hypertension Father No problems noted. Brother No problems noted. Brother No problems noted. Sister No problems noted. Sister No problems noted. Daughter No problems noted. Social History Housing: Apartment Alcohol intake: never Patient Tobacco Use Status: Former Tobacco user e-Cigarette/Vaping Use: Never Used service: No Current occupational status: employed Current occupation: population health coordinator, [employer] rt hand Cognitive needs: No Hearing needs: No Vision needs: No Review of Systems Const All systems reviewed & are unremarkable except as noted in HPI and below Physical Exam Vital Signs: BMI result Body Mass Index 34.4 Const General: no acute distress and alert Orientation/consciousness: patient oriented x3 Neuro General: patient oriented x3 Extrem Other: Evaluation of Right Upper Extremity: The patient is alert, oriented, and in no acute distress Neuro: Median, Ulnar, Radial nerves motor and sensory intact and sensation is normal to the tips of all digits Vascular: Cap refill brisk ROM: She can make a fist and extend all her digits Visible & palpable locking and catching of the bilateral index finger Tender over the bilateral index finger a1 cele Psych Appearance: grossly normal Affect: normal affect Attitude: cooperative Assessment & Plan Assessment & Plan (1) Trigger finger, right index finger: Code(s): M65.321 - Trigger finger, right index finger Category: Medical (2) Type 1 diabetes: Comment: dx'd 1997, insulin pump since 2011, sees endo once/yr Dr. Woody, has continuous glucometer Code(s): E10.9 - Type 1 diabetes mellitus without complications Category: Medical Plan Assessment & Plan: 1. Right index figner trigger finger This is her most symptomatic complaint I educated her about this condition I discussed operative and non-operative treatment options The patient would like to proceed with surgery The risks and benefits of operative treatment were discussed with the patient and the patient wishes to proceed with surgery. These risks include, but are not limited to risk of damage to blood vessels, nerves, tendons, infection, recurrence, incomplete relief of preoperative symptoms, persistent pain, possible need for further surgery and the risks associated with regional blocks and anesthesia. The plan is to take the patient to the operating room sometime in the next few weeks for the following procedures: 1. Right index finger trigger release, under local All of the preoperative paperwork including the consent was reviewed today. All the patient's questions were answered. The patient understands that they will be contacted by our scheduler maintenance soon to schedule this procedure She denies blood thinners, asthma, heart, lung, kidney issues She is a Diabetic, her most recent HgA1c was 9.1% on 06/25/24. They will need an updated HgA1c that is <8.1% in order to proceed with surgery, and they expressed understanding 2. Right middle trigger finger, S/P release DOS: 07/25/22 With good resolution 3. Left middle finger trigger finger, S/P release DOS: 09/15/23 With good resolution 4. Bilateral hand numbness Symptoms intermittent and occasional, worse at night Not mentioned today She may follow up when completed for review 5. Left ring trigger finger, S/P release DOS: 02/21/22 With good resolution Scribed for Elizabeth Cabrera MD by Javad Shea, medical affairs specialist, on 11/02/24 at 11:45 AM, EST. Coding Level of Care Code Est Pt Level 4 (95427) Diagnoses Trigger finger, right index finger M65.321 Type 1 diabetes E10.9
[2024-11-02 11:43] VITALS: BMI 34.4
== END 2024-11-02 12:01 | disposition home or self-care (01) ==
LOC: HO.HOS 10:51
PROVIDERS: Visit Provider Orthopaedic Surgery
DX: M65.321 Trigger finger, right index finger (principal); E10.9 Type 1 diabetes mellitus without complications
CPT/HCPCS: 99214

== ENCOUNTER 2025-05-11 08:07 | Outpatient (REF) | payer OTHER, MEDICAID, SELFPAY ==
[2025-05-11 12:09] LABS: Alanine Aminotransferase 13 U/L (0-31); Albumin Level 4.2 g/dL (3.5-5.0); Alkaline Phosphatase 82 U/L (39-117); Aspartate Amino Transferase 19 U/L (5-31); Cholesterol 172 mg/dL (<200); HDL Cholesterol 53 mg/dL (>40); Total Protein 6.9 g/dL (6.5-8.0); Triglycerides 65 mg/dL (<150)
[2025-05-11 12:18] LABS: Microalbum/Creatinine Ratio Ur 10.0 ug/mg cr (<30)
[2025-05-12 12:59] LABS: Appearance Urine Cloudy; Glucose Urine UA Negative (Negative); PH 6.5 (5.0-9.0); Specific Gravity - Urine 1.020 (1.005-1.025); UMIC TRIGGER UACC YES
[2025-05-12 13:19] LABS: UACC Culture Trigger YES
== END 2025-05-11 08:08 | disposition home or self-care (01) ==
LOC: HO.HHCL 08:07
PROVIDERS: Family Medicine; PCP Internal Medicine; Visit Provider Internal Medicine
DX: E10.65 Type 1 diabetes mellitus with hyperglycemia (principal); R00.0 Tachycardia, unspecified; N12 Tubulo-interstitial nephritis, not specified as acute or chronic; B35.1 Tinea unguium
CPT/HCPCS: 36415; 80061; 80076; 81001; 82043; 82570; 84443; 87086; 87088; 87186

== ENCOUNTER 2025-05-23 08:30 | Day surgery (SDC) | payer OTHER, SELFPAY ==
[2025-05-23 08:31] VITALS: BMI 34.8
[2025-05-23 08:33] VITALS: BP 113/76; PULSE 18; RESP 78; TEMP 35.9; O2SAT 99
--- NOTE | 2025-05-23 08:53 | P.OP_ITS ---
Operative Note Operative Note Date of Service: 05/23/25 Narrative: Operative Note Preop diagnosis: 1. Right index finger Trigger finger Postop diagnosis: Same Procedure: 1. Right index finger A1 cele release Surgeon: Elizabeth Cabrera MD Dimensional Inspector: Ze VERGARA Anesthesia: local block using 1% lidocaine with epinephrine Findings: No locking or catching after A1 cele release EBL: Less than 5 mL Tourniquet time: None Specimens: None Complications: None Disposition: Brought to recovery room in stable condition Plan: Follow-up for 10-14 days for wound check and suture removal Indications: The patient is 40 years old, with a right index finger trigger finger that has been unresponsive to nonoperative management. The risks and benefits of operative treatment including but not limited to risk of damage to blood vessels, nerves, tendons, infection, persistent pain, persistent symptoms, recurrence or possible need for additional surgery were discussed with the patient and the patient wishes to proceed with surgery. Procedure: Once consent was obtained a local block was performed in the preop area using a combination of 1% lidocaine with epinephrine. The patient was then brought back to the operating suite and placed on the operative table in supine position. The right upper extremity was prepped and draped in a standard surgical fashion. Once assured that we had a good block, a 1.5 cm oblique incision was made centered over the A1 cele of the right index finger . The incision was made through the skin to the subcutaneous tissues using a #15 blade. Careful dissection was made down to the level of the A1 cele using tenotomy scissors, with care being taken to protect the nearby neurovascular structures. A longitudinal incision was made in the A1 cele 1st using a #15 blade, then using tenotomy scissors under direct visualization. The A1 cele was noted to be thickened. Following our A1 cele release, we no longer saw any locking or catching of the digit with flexion and extension. Once satisfied with our A1 cele release the wound was copiously irrigated with normal saline and hemostasis was obtained with a brief period of local pressure. The skin edges were reapproximated with some 5.0 nylon suture material and a sterile dressing was applied. The patient appears to have tolerated the procedure well and with no complications. All digits were well vascularized at the conclusion of the case.
--- NOTE | 2025-05-23 08:53 | MHC.SHP ---
Pre-Procedural Eval Section A - 24 Hr Update-Section A only Date of Service: 05/23/25 The patient is an INPATIENT: No Changes since office visit: No Cold of Flu in the past 2 weeks, No New Medical Problems, No Changes in Medication and No Patient answered all questions The patient has been examined within 24 hours of the surgical procedure. The History & Physical has been completed within 30 days and I have reviewed it.: Yes Section B - Complete if H&P > 30 days Chief Complaint: Trigger finger, right index finger Allergies: Allergies Allergy/AdvReac Type Severity Reaction Status Date / Time No Known Allergies (No Known Allergy Verified 11/02/24 11:45 Allergies*) Plan Diagnosis/Plan: Unchanged I have reviewed the history and physical and performed a pertinent physical examination on my patient. No changes have occurred unless specified. Time Spent With Patient Time: Total time managing care of this patient today ____ minutes.
[2025-05-23 09:02] VITALS: BP 130/56; PULSE 77; RESP 18; TEMP 36.1; O2SAT 97
[2025-05-23 09:29] VITALS: BP 127/77; PULSE 97; O2SAT 100
== END 2025-05-23 09:33 | disposition home or self-care (01) ==
PROVIDERS: PCP Internal Medicine; Visit Provider Orthopaedic Surgery
PROC: (CPT 26055; principal; 2025-05-23 09:30)
DX: M65.321 Trigger finger, right index finger (principal); E10.9 Type 1 diabetes mellitus without complications; N85.6 Intrauterine synechiae; E66.9 Obesity, unspecified; Z68.34 Body mass index [BMI] 34.0-34.9, adult; Z90.711 Acquired absence of uterus with remaining cervical stump; Z96.82 Presence of neurostimulator; Z79.4 Long term (current) use of insulin; Z98.890 Other specified postprocedural states; Z87.891 Personal history of nicotine dependence
CPT/HCPCS: 26055; J0165; J2003

== ENCOUNTER → 2025-05-23 08:30 | Outpatient (BNV) | payer OTHER, SELFPAY | PROVIDERS: PCP Internal Medicine; Visit Provider Orthopaedic Surgery | DX: M65.321 Trigger finger, right index finger (principal) | CPT/HCPCS: 26055 ==

== ENCOUNTER 2025-06-03 13:39 | Outpatient (AMB) | payer OTHER, MEDICAID, SELFPAY ==
--- NOTE | 2025-06-03 13:41 | A.OFFVIS_ITS ---
Vital Signs 06/03/25 13:42 Height 5 ft Weight 178 lb BMI 34.8 Intake Visit Reasons: PO-Rt IF Trigger Release 05/23/25 Intake Note: Ekta is a 40 year old right hand dominant female who presents today for a Post- Operative Visit status post Right Index Finger Trigger Release performed by Dr. Cabrera on 05/23/25. Patient denies any finger locking, numbness, or tingling. She is no longer taking pain medications. Patient returned back to work the next day. Sutures removed and steri strips applied. Allergies No Known Allergies (No Known Allergies*) Allergy (Verified 06/03/25 13:42) HPI HPI PO-Rt IF Trigger Release 05/23/25: Details: Ekta is a 40 year old right hand dominant female who presents today for a Post- Operative Visit status post Right Index Finger Trigger Release performed by Dr. Cabrera on 05/23/25. Patient denies any finger locking, numbness, or tingling. She is no longer taking pain medications. Patient returned back to work the next day. Sutures removed and steri strips applied. [facility] Medical History Asherman's syndrome History of episiotomy Obesity (BMI 30.0-34.9) Sacral nerve stimulator present Type 1 diabetes Surgical History History of partial hysterectomy Hx of section Family History Mother Heart disease Hypertension Father No problems noted. Brother No problems noted. Brother No problems noted. Sister No problems noted. Sister No problems noted. Daughter No problems noted. Social History Housing: Apartment Alcohol intake: never Patient Tobacco Use Status: Former Tobacco user e-Cigarette/Vaping Use: Never Used service: No Current occupational status: employed Current occupation: population health coordinator, [employer] rt hand Cognitive needs: No Hearing needs: No Vision needs: No Review of Systems Const All systems reviewed & are unremarkable except as noted in HPI and below Physical Exam Vital Signs: BMI result Body Mass Index 34.8 Extrem Other: Patient is alert, oriented, and in no acute distress. Neuro: Normal sensation of the tips of all digits of the right hand at this time Vascular: Cap refill brisk Pain: No tenderness to palpation of the incision site over the A1 cele of the right index finger No pain with range of motion of the right hand ROM: No further locking and catching of the right index finger in a flexed position Patient is able to flex and extend all digits of the right hand fully and without difficulty Skin: Well approximated and well healing incision site noted over the A1 cele of the right index finger No lacerations or abrasions. General: No ecchymosis, erythema, or evidence of infection. Psych: Appears grossly normal Affect normal Attitude cooperative Assessment & Plan Assessment & Plan (1) Trigger finger, right index finger: Code(s): M65.321 - Trigger finger, right index finger Category: Medical Plan 1. Status post right index finger trigger release DOS 05/23/2025 With good symptom resolution postoperatively Patient appears to be recovering well postoperatively Patient is educated about the typical recovery course No under water times one-week, 2 lb weight limit x2 weeks Patient understands this in his amenable to this plan Follow-up as needed with any acute concerns Coding Level of Care Code Global (62877) Diagnoses Trigger finger, right index finger M65.321
[2025-06-03 13:42] VITALS: BMI 34.8
--- OUTSIDE RECORDS SUMMARY | 2025-06-03 14:36 | XMS_ITS | Clinical Summary ---
Demographics Address [address] [place] [address], [address] [place] [address] Mobile Phone Home Phone Work Phone Email Address Preferred Language [place] Citizen Marital Status Unknown Alevism Affiliation Unknown Race White Ethnic Group or Author Organization [facility] Address [address] [place] [phone] Phone Care Team Providers Care Applied Psychology Professor Name Role Phone VitorrTesanSisi Gabbie [facility] Primary Care Prov ider Allergies No known active allergies Medications Medication-Free Text Reservior 3ml as directed Miscellaneous, Sig: as directed 03/15/20 14 Active Medication-Free Text Silhouette 13mm as directed Miscellaneous, Sig: as directed change Q1-2 days Active GUARDIAN SENSOR 3 Judy by Miscellaneous route. Active acetone, urine, test (ACETONE, URINE, TEST) StrpIndications:Ty pe 1 diabetes mellitus with retinopathy, macular edema presence unspecified, unspecified laterality, unspecified retinopathy severity as directed for urine ketone monitoring in case of severe and/or persistent hyperglycemia, illness associated with nausea and/or vomiting 50 strip 11 05/04/20 21 Active glucagon (GVOKE HYPOPEN 2-PACK) 1 mg/0.2 mL subcutaneous auto-injectorIndic ations:Type 1 diabetes mellitus with retinopathy, macular edema presence unspecified, unspecified laterality, unspecified retinopathy severity Inject 0.2 mL (1 mg total) under the skin once as needed (in case of severe low blood sugar). 0.4 mL 5 09/09/19 23 Active ACCU-CHEK GUIDE TEST STRIPS Strp stripsIndications: Type 1 diabetes mellitus with retinopathy, macular edema presence unspecified, unspecified laterality, unspecified retinopathy severity USE DIRECTED 6 TIMES A DAY 200 strip 11 04/23/20 24 Active atorvastatin (LIPITOR) 10 MG tabletIndications: Hyperlipidemia, unspecified hyperlipidemia type TAKE 1 TABLET BY MOUTH EVERY DAY 90 tablet 11/16/19 25 Active HUMALOG U-100 INSULIN 100 unit/mL injection vialIndications:Ty pe 1 diabetes mellitus with retinopathy, macular edema presence unspecified, unspecified laterality, unspecified retinopathy severity INJECT UP TO 70 UNITS VIA INSULIN PUMP DAILY DIRECTED 70 mL 3 12/11/19 25 Active WEGOVY 1.7 mg/0.75 mL subcutaneous injectionIndicatio ns:Class 2 severe obesity with serious comorbidity and body mass index (BMI) of 35.0 to 35.9 in adult, unspecified obesity type INJECT 0.75 ML (1.7 MG TOTAL) UNDER THE SKIN EVERY 7 DAYS 3 mL 2 05/02/20 25 Active Active Problems Problem Noted Date Diagnosed Date Depressive disorder 03/17/2023 03/17/2023 Hyperlipidemia 03/17/2023 Assessment & Plan (04/25/2025 11:14 PM EDT): Most recent lipid panel is not available for review LDL goal is <70 ideally Continues on low dose/moderate intensity statin Assessment & Plan (12/10/2024 2:30 PM EDT): Most recent lipid panel is not available for review LDL goal is <70 ideally Continues on low dose/moderate intensity statin Assessment & Plan (06/25/2024 3:26 PM EST): Most recent lipid panel reviewed, this is from Ekta is reassured that her TG and HDL are very reassuring, LDL is improved but remains elevated above goal Continues on low dose/moderate intensity statin Assessment & Plan (09/22/2023 10:35 PM EST): Most recent lipid panel reviewed Ekta is reassured that her TG and HDL are very reassuring, LDL is improved but remains elevated above goal Continues on low dose statin Assessment & Plan (03/17/2023 1:22 PM EDT): Most recent lipid panel reviewed Ekta is reassured that her TG and HDL are very reassuring, LDL is modestly elevated and above goal We discussed starting low dose statin to help optimize LDL and she is agreeable to this Class 1 drug-induced obesity with serious comorbidity and body mass index (BMI) of 30.0 to 30.9 in adult 12/06/2022 Assessment & Plan (04/25/2025 11:14 PM EDT): Weight has decreased by about 30lb, BMI is down to 30 from 36 last fall Encouraged to continue to eat a healthy diet, Ekta reports decreased appetite and early satiety due to Wegovy, she will continue on current dose; she remains regularly active with exercise We discussed considerations for increase to next dose if weight loss stabilizes, appetite increases, early satiety effect wanes Assessment & Plan (12/10/2024 2:32 PM EDT): Weight has decreased, BMI is down to 34 from 36 last fall Encouraged to continue to eat a healthy diet, Ekta reports decreased appetite and early satiety due to Wegovy; she remains regularly active with exercise Continues on Wegovy 1mg weekly, Ekta will continue this dosage, we discussed considerations for increase to next dose if weight loss stabilizes, appetite increases, early satiety effect wanes Assessment & Plan (06/25/2024 3:33 PM EST): Weight has increased, BMI is now 36 Encouraged to continue to eat a healthy diet as consistently as she can and to remain active with regular exercise, Ekta is doing well with this Had been approved for Wegovy therapy in the past, we will try for another PA for this and then change to Zepbound after Aug 04 when her insurance preference will change to this Assessment & Plan (09/22/2023 10:38 PM EST): Weight remains stable, BMI ~34 Encouraged to try to eat a healthy diet as consistently as she can and to remain active with regular exercise, Ekta is doing well with this Had been approved for Wegovy therapy but was unable to find this in stock, will try to optimize lifestyle Type 1 diabetes 11/13/2018 Assessment & Plan (12/10/2024 2:42 PM EDT): A1c is improved significantly since our last visit Continues to do well with healthy lifestyle, this along with Wegovy has led to nearly 10% weight loss We reviewed insulin pump and CGM data together, TIR remains below goal of 70%, in the past 2 weeks this is at 53% Ekta has had a good response to Wegovy currently at 1mg weekly, we elected to continue this at the current dosage as Ekta is having continued reduced appetite and steady weight loss, she has also has GERD which may increase/worsen with optimized dose Ekta and I will meet again in 4-5 months, she is advised to contact me with any questions or concerns in the interim Assessment & Plan (09/22/2023 10:49 PM EST): Continues to do well with healthy lifestyle, but remains challenged by difficulty to lose weight We reviewed insulin pump and CGM data together, TIR is improved but remains below goal of 70%, in the past 2 weeks this is at 62% Ekta did have good response to a trial of Ozempic in the past but this was not covered, she has been approved for Wegovy but has not been able to access this due to shortages and back orders, Ekta would like to continue to work on optimize her healthy eating and staying active Routine eye exam is up to date Ekta and I will meet again in 6 months, she will return for Omnipod 5 training in the near future once she has all of her supplies Assessment & Plan (03/17/2023 1:17 PM EDT): Continues to do well with healthy lifestyle, but remains challenged by difficulty to lose weight, encouraged to continue with healthy eating and staying active We reviewed insulin pump and CGM data together, TIR is stable but below goal of 70%, in the past 2 weeks this is at 54% Ekta has been on several medications to help assist her in mindful eating for the benefit of optimizing glucose control with added benefit of weight loss, unfortunately many of these have proven ineffective or were not tolerated well, Ekta did have good response to a trial of Ozempic in the past but this was not covered, she has been approved for Wegovy and this is the same compound she should be able to take advantage of weight loss benefit as well as positive impact on glucose Routine eye exam is up to date Ekta and I will meet again in 6 months, she is also advised to reschedule her visit with nutrition educator/RD; she is encouraged to reach out to me with any questions or concerns Assessment & Plan (09/09/2022 9:49 PM EST): Continues to do well with healthy lifestyle, but challenged by difficulty to lose weight and suboptimal glucose control, encouraged to continue with healthy eating and staying active We reviewed insulin pump and CGM data together, TIR is below goal of 70%, in the past 2 weeks this is at 56% Ekta has been on several medications to help assist her in mindful eating for the benefit of optimizing glucose control with added benefit of weight loss, unfortunately many of these have proven ineffective or were not tolerated well Ekta is given Ozempic sample today, she will take 0.25mg once weekly for 4 weeks followed by 0.5mg once weekly for 2 weeks, we will be in touch to discuss how she is doing on this via the patient portal Routine eye exam is up to date Ekta and I will meet again in 3-4 months, she is encouraged to reach out to me with any questions or concerns Assessment & Plan (04/11/2022 12:07 PM EDT): Continues to do well with healthy lifestyle, encouraged to continue with healthy eating and staying active We reviewed insulin pump and CGM data together, TIR is at goal, 70% Ekta is now on phentermine which has been working well for her in terms of appetite management and she has had weight loss, she will likely be stopping phentermine in the near future as this is meant to be short term therapy and she has had some side effects related to this Ekta's biggest issue is obtaining CGM supplies, we discussed this today and we will try to assess the status of this situation with PIERO on Ekta's behalf, she is certainly benefitting from CGM and certainly in this time period of insulin requirement changes related to weight loss and weight loss medication use Ekta has not had good success with GLP1ra and developed side effects to amylin therapy in the recent past Routine eye exam is up to date Ekta and I will meet again in 3-4 months, she is encouraged to reach out to me with any questions or concerns Assessment & Plan (12/04/2021 11:04 AM EDT): Continues to do well with healthy lifestyle, encouraged to continue with healthy eating and staying active Ekta is now on phentermine which has been working well for her in terms of appetite management and she has had weight loss, we discussed impact on insulin requirement with weight loss and need for monitoring for increase in hypoglycemia Ekta is also working with a therapist and wading through some deep seated issues related to past trauma that is likely also impacting her lifestyle and food intake in particular, we discussed the potential for significant impact on her overall emotional and physical health from these efforts and encouraged to continue with this very important work Ekta has not had good success with GLP1ra and developed side effects to amylin therapy in the recent past Ekta and I will meet again in 4 months, she is encouraged to reach out to me with any questions or concerns Assessment & Plan (08/24/2021 12:38 PM EST): Continues to do well with healthy lifestyle, encouraged to continue with healthy eating and staying active We had discussed optimized Victoza dosage at our last visit, Ekta tried this and feels that at some point Victoza stopped working for her and she stopped it Self reported 30 day blood sugar average is elevated but improved compared to our last visit, unfortunately we are not able to review Ekta's glucose patterns today Ekta is up to date on COVID primary series and booster, she is also up to date on flu vaccine Encouraged to reach out to me with questions or concerns, will return to meet with our educator in 3-4 months and with me in 6 months Assessment & Plan (04/20/2021 12:56 PM EDT): Continues to do well with healthy lifestyle, encouraged to continue to stay active We discussed optimizing Victoza to 1.8mg daily, this higher dose may help more with appetite suppression and weight loss and may also have more of a glycemic effect, we discussed the rationale for GLP1ra use in type 1 diabetes when there are overwhelming indications of insulin resistance and type 2 diabetes features, if this optimize dose proves ineffective after 6-8 weeks then Ekta will stop Self reported 30 day blood sugar average is elevated, unfortunately we are not able to review Ekta's glucose patterns today, we discussed patterns to evaluate and use to make adjustments to insulin pump settings We discussed the difference in glucose effect from low intensity and high intensity exercise and the impact of these different exercises on weight loss, Ekta is encouraged to continue a variety of activities but to be mindful about expected glucose lowering of low intensity exercise and proactive therapy around that Encouraged to reach out to me with questions or concerns, will return to meet with our educator in 3-4 months and with me in 6 months Assessment & Plan (07/04/2020 11:07 AM EST): Continues to do well with healthy lifestyle, encouraged to continue to stay active Encouraged to try new insulin pump settings as discussed below, advised to continue prebolusing prior to meals by 15-20 minutes Recent A1c is suboptimal and self reported 30 day blood sugar average is elevated, unfortunately we are not able to review Ekta's glucose patterns today, we discussed patterns to evaluate and use to make adjustments to insulin pump settings, Ekta's current infusion settings are the same over 24hr period but we discussed that her insulin needs may vary so she can adjust her settings based on glucose patterns based on time of day Encouraged to reach out to me with questions or concerns, will return to meet with our educator in 3-4 months and with me in 6 months Assessment & Plan (11/02/2019 10:48 AM EDT): Healthy diet and consistent exercise have led to a 14lb weight loss since August, Ekta is encouraged to continue these healthy habits We discussed the best practices to help achieve consistent results in automode, this may involve using manual mode for the algorithm to adjust to current needs then will run pump in automode and should experience less hypoglycemia, we discussed the importance of consistency in lifestyle to help this work optimally Encouraged to stay ahead on her insulin supply at this time, pump/sensor supplies are adequate and refill of these is in process Advised to call with any questions or concerns Assessment & Plan (11/14/2018 12:19 PM EDT): Large variability in blood sugars due to suboptimal lifestyle, poor diet and little activity, encouraged to improve diet by packing own lunch and reduce fast food intake Ekta has had ~20lb weight gain since summer 2016 We discussed importance of improving lifestyle which will lead to improved glucose control Ekta has fear of hypoglycemia, we discussed utilizing Manual Mode with Suspend Before Low vs current Automode, there may be benefits to this for Ekta for the time being, return to Automode will likely lead to improved control but improving lifestyle and fine-tuning Automode settings will be required, strongly encouraged to return for visit with our nutrition educator staff Ekta has been started on statin therapy for primary cardiovascular prevention, she reports that her lipids are not elevated, though I do not have these to evaluate Statin therapy is routinely recommended for patients with diabetes despite lipid levels after age 40 for primary cardiovascular prevention so if Ekta's LDL is in good range then she may not require statin therapy until age 40 Ekta has had PRIYANKA, future is not an issue needed to be considered with respect to statin therapy Insulin pump in place 11/13/2018 Assessment & Plan (04/25/2025 11:19 PM EDT): Images from the original note were not included. We did not adjust insulin pump settings, Ekta has made some adjustments to make insulin delivery at meals more conservative given her improved insulin sensitivity Overall glucose patterns continue to be variable day to day but control is much better overall and especially when using a CGM consistently We discussed the newly available [employer] CGM for the Medtronic 780G available today, advised to contact supplier to inquire about availability of this Encouraged to continue all of her excellent efforts at healthy lifestyle and to contact me with any questions or concerns, we will follow up within 4 months and 6 months Assessment & Plan (12/10/2024 2:36 PM EDT): Current insulin pump setting Time Basal Rates? Time ICR Time ISF Time Target IOB 12am 0.40u/hr 12am 7 12am 25 12am 100mg/dl 2hrs 3pm 0.375 TOTAL 9.375u/day We had discussed adjustments to pump settings at last visit, these were further adjusted when Ekta started on Wegovy, the only question is carb ratio which has produced variable prandial response however there is also variability in how this is used prior to eating due to impact on appetite and intake, Ekta is advised to try this with accurate carb counts to assess how this works Overall glucose patterns continue to be variable day to day but control is much better overall and especially when using a CGM compared to periods of time in the past when she was only checking blood sugar by fingerstick We discussed considerations for mitigating hypoglycemia risk, Ekta is advised to trial temp target prior to active work days or if she is concerned about hypoglycemia overnight when optimizing Wegovy dosage or when active with exercise, this is likely to be more helpful and less likely to cause very high glucose than suspending the insulin pump Encouraged to continue all of her excellent efforts at healthy lifestyle and to contact me with any questions or concerns, we will follow up within 4-5 months to satisfy insurance criteria for supply reorder Assessment & Plan (06/25/2024 3:31 PM EST): Current insulin pump setting Time Basal Rates? Time ICR Time ISF Time Target IOB 12am 1.10u/hr 12am 5 12am 25 12am 120mg/dl 2hrs TOTAL 26.4u/day We discussed adjustment/optimization of target glucose, current settings include a higher basal rate than in the past and this is working well for Ekta, she may need adjustment of insulin pump settings when she begins GLP1ra therapy Overall glucose patterns are variable day to day but control is much better when using a CGM compared to periods of time when she is only checking blood sugar by fingerstick Encouraged to continue all of her excellent efforts at healthy lifestyle and to contact me with any questions or concerns, we will follow up within 6 months to satisfy insurance criteria for supply reorder Assessment & Plan (09/22/2023 10:44 PM EST): Current insulin pump setting Time Basal Rates? Time ICR Time ISF Time Target IOB 12am 0.75u/hr 12am 5 12am 25 12am 111mg/dl 2hrs 6am 0.975 6pm 0.90 TOTAL 21.75u/day We did not adjust insulin pump settings today, Ekta would like to consider Omnipod insulin pump therapy, she has been unable to get her pump/CGM supplies reliably and most recently received Dexcom sensors which do not work with her current insulin pump, this would work with the Omnipod 5 system and Ekta would like to be able to use a tubeless insulin pump system Overall patterns are variable day to day but overall control is improved compared to the past Ekta will return for training on the OP5 system once she receives all required supplies Encouraged to continue all of her excellent efforts at healthy lifestyle and to contact me with any questions or concerns Assessment & Plan (03/17/2023 1:18 PM EDT): Current insulin pump setting Time Basal Rates? Time ICR Time ISF Time Target IOB 12am 1.10u/hr 12am 5 12am 25 12am 102-121 mg/dl 4hrs TOTAL 26.4u/day We did not adjust insulin pump settings today, Ekta may need adjustment to settings when she is able to start Wegovy therapy which will likely result in lower appetite/intake and weight loss as well as impact glucose directly, advised to continue to monitor CGM patterns Overall patterns are variable day to day but overall control is improved compared to the past Ekta is in the process of upgrading her insulin pump software through [employer] Encouraged to continue all of her excellent efforts at healthy lifestyle and to contact me with any questions or concerns Assessment & Plan (09/09/2022 9:41 PM EST): Current insulin pump setting Time Basal Rates? Time ICR Time ISF Time Target IOB 12am 1.10u/hr 12am 5 12am 25 12am 102-121 mg/dl 4hrs TOTAL 26.4u/day We did not adjust insulin pump settings today, Ekta may need adjustment to settings if she is able to start a therapy which results in lower appetite/intake, advised to continue to monitor CGM patterns Overall patterns are variable day to day Encouraged to continue all of her excellent efforts at healthy lifestyle and to contact me with any questions or concerns Assessment & Plan (04/11/2022 12:05 PM EDT): Current insulin pump setting Time Basal Rates? Time ICR Time ISF Time Target IOB 12am 0.975u/hr 12am 5 12am 25 12am 102-121 mg/dl 4hrs 6am 1.00 TOTAL 23.85u/day We did not adjust insulin pump settings today, Ekta's basal rate is lower than prior to our last visit by ~10% which is in line with insulin requirement changes based on weight loss, changes in po intake Overall patterns continue to be generally stable in early part of the day, more variable later in the day, CV is modestly elevated, continues to spend large amount of time in Automode when CGM is available for use Encouraged to continue all of her excellent efforts and to contact me with any questions or concerns Assessment & Plan (12/04/2021 11:00 AM EDT): Current insulin pump setting Time Basal Rates? Time ICR Time ISF Time Target IOB 12am 1.10u/hr 12am 5 12am 25 12am 102-118 mg/dl 4hrs TOTAL 26.4u/day We did not adjust insulin pump settings today Overall patterns seem very stable using current settings and Automode We discussed possible reduction in insulin requirement with continued weight loss and need for monitoring patterns with this in mind Encouraged to continue all of her excellent efforts Assessment & Plan (08/24/2021 12:36 PM EST): We were unable to review insulin pump settings and CGM data today, Ekta is reminded to try to set up data sharing through [facility] Based on reported patterns, Ekta seems to be doing better with respect to glucose control Assessment & Plan (04/20/2021 12:51 PM EDT): We were unable to review insulin pump settings and CGM data today Based on reported patterns, Ekta may need change to I:C ratio or simply be more consistent with her dosing at meals/snacks [facility] sharing with our office advised Assessment & Plan (07/04/2020 11:03 AM EST): New insulin pump setting Time Basal Rates? Time ICR Time ISF Time Target IOB 12am 0.85u/hr 12am 6 12am 25 12am 100mg/dl 4hrs 6am 0.95 11am 4.5 We discussed adjustment of I:C ratio to help optimize prandial glucose and reduce postprandial hypoglycemia early in the day We discussed further adjustment to basal rates overnight to help reduce nocturnal hypoglycemia, Ekta is aware that the basal rate changes are only in effect in Manual Mode so after these changes it is important for her to remain in Manual Mode for 4-5 days prior to adjusting back to Automode Will be upgrading to Medtronic 770G soon Assessment & Plan (11/02/2019 10:44 AM EDT): We discussed increasing daytime basal rate which will improve control in manual mode Encouraged to utilize manual mode for several days while following current eating pattern so that algorithm can apply this information to automode when she switches into it, we reviewed how automode applies information from algorithm and that this is taking into account past, not current, needs; berman to stability in automode is consistency of diet/activity Assessment & Plan (11/14/2018 12:08 PM EDT): Ekta has been running her Medtronic insulin pump/CGM in Automode but has not had consistent follow up with us, it's likely that this automated system is not being optimally utilized and she is escorted out of Automode often which leads to inadequate algorithm assessment Ekta is strongly encouraged to return for a visit with our CDE, in the meantime we have set her insulin pump/CGM to work in manual mode with suspend before low features enabled Type 1 diabetes mellitus without complication Assessment & Plan (04/25/2025 11:25 PM EDT): Continues to do well with healthy lifestyle, Ekta has also been able to achieve clinically significant weight loss since on Wegovy and this has improved her overall quality of life; Ekta had also tolerated Ozempic in the past She is happy with overall effect of Wegovy and will continue current dosage, we discussed considerations for optimizing this to max dose We reviewed insulin pump and CGM data together, Ekta has suboptimal TIR but her insulin requirement is much lower than a year ago, variability is high in the past 2 weeks, GMI 7.5% Routine eye exam is not up to date, blood pressure is in excellent control today Ekta and I will meet again in 6 months Improvement in glucose management will help support vision health, Ekta has h/o retinopathy in the past which resolved Ekta will return in 4 months and 6 months, Ekta is advised to contact me with any questions or concerns Assessment & Plan (06/25/2024 3:24 PM EST): Continues to do well with healthy lifestyle, but remains challenged by difficulty to lose weight, was on starter dose of Wegovy for one month and tolerated this well then was unable to get follow up dose and was not able to continue, would like to resume this; Ekta had also trialed Ozempic in the past and tolerated this well We reviewed insulin pump and CGM data together, Ekta does better with overall glucose management when she is using CGM she has been off this for some time due to coverage/supply issues Routine eye exam is up to date, blood pressure is in excellent control today Ekta and I will meet again in 6 months, she will return for ever[employer] 5 training in the near future once she has all of her supplies Improvement in glucose management will help support vision health Ekta will return in 5-6 months to satisfy OV requirements for getting supplies without interruption Assessment & Plan (09/22/2023 10:38 PM EST): Routine eye exam is up to date Blood pressure is in excellent control today Improvement in glucose management will help support vision health Assessment & Plan (09/09/2022 9:20 PM EST): Routine eye exam is up to date Blood pressure is in excellent control today Improvement in glucose management will help support vision health Assessment & Plan (08/24/2021 12:35 PM EST): Routine eye exam is up to date Improvement in glucose management will help support eye health Encounters Date Type Department Care Team Description 04/30/2025 Refill [facility] [address] [place] [address] [place] [address] Damaris Woody MD Medication Refill 04/25/2025 2:40 PM EDT Office Visit [facility] [address] [place] [address] Damaris Woody MD Type 1 diabetes mellitus without complication (Primary Dx); Insulin pump in place; Hyperlipidemia, unspecified hyperlipidemia type; Class 1 drug-induced obesity with serious comorbidity and body mass index (BMI) of 30.0 to 30.9 in adult from Last 3 Months Immunizations Immunization Administration Dates Next Due COVID-19 (Pre-05/26) Moderna Vaccine, mRNA, PF 08/28/2020,07/31/2020 Hepatitis B 08/17/2007,11/07/2006,10/17/2006 Hepatitis B Adult 06/10/2019 INFLUENZA, SPLIT VIRUS, TRIV ALENT W/ PRESERVATIVE IM 04/15/2012 Influenza Quadrivalent MDCK Preservative Free IM 04/19/2021 Influenza Quadrivalent Preservative Free IM 11/0 10/2021,05/11/2020 Influenza Quadrivalent w/ Preservative IM 2018,04/15/2018,04/12/2015 Influenza, Unspecified Formulation 08/07/2022, MMR 07/10/2011 Pneumococcal polysaccharide PPSV23 03/20/2009 Td (adult),2 Lf Tetanus Toxo id, PF, Adsorbed 11/07/2006 Tdap 08/17/2021,07/10/2011 Varicella 07/10/2011 Social History Tobacco Use Types Packs/Day Years Used Date Smoking Tobacco: Never Passive Smoke Exposure: Never Smokeless Tobacco: Never Tobacco Cessation:Counseling Given: Not Answered Alcohol Use Standard Drinks/Week Comments Not Currently 0 (1 standard drink = 0.6 oz pur e alcohol) Education Answer Date Recorded Are you interested in more education? Not on estela e 11/29/2022 Are you concerned about learning? Not on file 11/29/2022 No 11/29/2022 No 11/29/2022 Digital Access Answer Date Recorded No 12/25/2022 No 12/25/2022 Reliable internet access at home? Not on file 12/25/2022 Device with a working camera? Not on file Comments Unknown Sex and Gender Information Value Date Recorded Sex Assigned at Female 08/22/2021 2:18 PM EST Legal Sex Female 10:28 PM EDT Gender Identity Female 08/22/2021 2:18 PM EST Sexual Orientation Straight 08/22/2021 2: 18 PM EST Last Filed Vital Signs Vital Sign Reading Time Taken Comments Blood Pressure 124/80 04/25/2025 2:50 PM EDT Pulse 98 04/25/2025 2:50 PM EDT Temperature 36.4 C (97.5 F) 03/17/2023 11:48 AM EDT Respiratory Rate - - Oxygen Saturation 98% 12/10/2024 12:52 PM EDT Inhaled Oxygen Concentration - - Weight 70.3 kg (155 lb) 04/25/2025 2:50 PM EDT Height 152.4 cm (5') 04/25/2025 2:50 PM EDT Body Mass Index 30.27 04/25/2025 2:50 PM EDT Plan of Treatment Upcoming Encounters Date Type Department Care Team (Late st Contact Info) Description 08/26/2025 1:20 PM EST Office Visit [facility] [address] [place] [address] [place] [address] Damaris Woody MD [address] [place] [address], [address] [place] [address] 11/25/2025 2:00 PM EDT Office Visit [facility] [address] [place] [address] [place] [address] Damaris Woody MD [address] [place] [address], [address] [place] [phone] Health Maintenance Due Date Last Done Comments DEPRESSION SCREENING 1995 HEPATITIS C SCREENING 2001 HIV ONE-TIME SCREENING (18-65 YEARS) 2001 PAP SMEAR 2004 PNEUMOCOCCAL VACCINES (0-49 years) (2 of 2 - PCV) 03/20/2010 03/20/2009 DIABETIC EYE EXAM 11/13/2018 MAMMOGRAM 2023 URINE MICROALBUMIN/CREATININE RATIO 09/09/2023 09/09/2022 INFLUENZA VACCINE (#1) 2025 , 04/18/2023, 08/07/2022, Additional history exists COVID-19 VACCINE (2024- season) 2025 08/06/2024, 04/18/2023, 06/06/2022, Additional history exists HEMOGLOBIN A1C 08/25/2025 02/22/2025, 05/0 04/2025, 06/25/2024, Additional history exists BLOOD PRESSURE 10/23/2025 04/25/2025 Adult Td,Tdap Booster 08/17/2031 08/17/2021 , 07/10/2011, 11/07/2006 SMOKING STATUS SCREENING (Once After 26 Yrs) Completed 12/10/2024 HEPATITIS A VACCINES Aged Out No long er eligible based on patient's age to complete this topic HIB VACCINES Aged Out No longer eligi ble based on patient's age to complete this topic MENINGOCOCCAL VACCINES (ACWY) Aged Out No longer eligible based on patient's age to complete this topic MENINGOCOCCAL VACCINES (B) Aged Out N o longer eligible based on patient's age to complete this topic Medical Devices Not on file Procedures Procedure Name Priority Date/Time Associated Diagnosis Comments POCT HEMOGLOBIN A1C Routine 12/10/2024 1 :09 PM EDT Type 1 diabetes mellitus without complication MICROALBUMIN/CREATI NINE RATIO, RANDOM URINE Routine 09/09/2022 12:53 PM EST Type 1 diabetes mellitus with retinopathy, macular edema presence unspecified, unspecified laterality, unspecified retinopathy severity from Last 3 Months or Most Recently Relevant to Health Maintenance Results * (ABNORMAL) POCT Hemoglobin A1c (12/10/2024 1:09 PM EDT) Hemoglobin A1c 8.0(A) 4.2 - 5.6 % [facility] Other 12/10/2024 1:09 PM EDT Damaris Woody MD POINT OF CARE TEST ORDERABLES F inal Result Performing Organization Address City/[facility] Co de Phone Number [address] [address], [facility] * Microalbumin/creatinine ratio, random urine (09/09/2022 12:53 PM EST) URINE MICROALBUMIN 1.2 0 - 2.3 mg/dL [facility] URINE CREATININE 70 mg/dL [facility] MICROALB/CRE RATIO 17.1 0 - 20 mg/g Cre [facility] Urine (Urine) 09/09/2022 12: 53 PM EST 09/09/2022 1:03 PM EST Damaris Woody MD URINE ORDERABLES Final Result [address] [phone] from Last 3 Months or Most Recently Relevant to Health Maintenance Insurance [place] [address] HMO Member Subscriber Plan / Payer (Ef fective 2017-Present) Name:Ekta Reid Relation to Subscriber:Self Name:Ekta Reid Payer ID:Not on file Type:HMO Address: [address] [employer] [place] [address] HMO Member Subscriber Plan / Payer (Ef fective 2017-Present) Name:Ekta Reid Relation to Subscriber:Self Name:Ekta Reid Payer ID:Not on file Type:HMO Address: [address] [employer] [facility] [address] [place], [place] [address]O [facility] HMO PARTIAL [place] [address] [facility] H[facility] Member Subscriber Plan / Payer (Ef fective 2017-Present) Name:Ekta Reid Relation to Subscriber:Self Name:JeanetteEkta Payer ID:Not on file Type:HMO Address: [address] [employer] [facility] Member Subscriber Plan / Payer (Ef fective 2017-Present) Name:Jeanette Ekta Relation to Subscriber:Self Name:Jeanette Ekta Payer ID:Not on file Type:HMO Address: [address] [place] [address] , [place] [address] , [place] [address] , [place] [address] , [place] [address] , [place] [address] , [place] [address] , [place] [address] , [place] [address] Care Teams Applied Psychology Professor Relationship Specialty Start Date End Date Sisi Alvarez FNP [address] [place] [address] [address] [place], [place] PCP - General 03/17/23 Additional Source Comments The information contained in this document represents components of the legal health record. It is not the complete legal health record.[facility]
--- OUTSIDE RECORDS SUMMARY | 2025-06-03 14:36 | XMS_ITS | Encounter Summary ---
Demographics Address [address] [facility] [facility] [place] [address] Mobile Phone Home Phone Work Phone Email Address Preferred Language Kiswahili Marital Status Unknown Sikh Affiliation Unknown Race White Ethnic Group or Author Organization [facility] Address [address] [facility] [address] [place] [phone] Phone Care Team Providers Care Truck Dispatcher Name Role Phone Kathryn Mariscal MD Primary Care Provider Sisi Alvarez Primary Care Prov ider Reason for Visit * Reason Comments Med Change Request Encounter Details Date Type Department Care Team ([facility] Contact Info) Description 01/20/2023 Refill [facility] [address] [place] [address] Damaris Woody MD [address] [facility], 1st [place] [address] [email or web address] Med Change Request Social History Tobacco Use Types Packs/Day Years Used Date Smoking Tobacco: Never Smokeless Tobacco: Never Alcohol Use Standard Drinks/Week Comments Not Currently [...] Orientation Straight 08/22/2021 2: 18 PM EST documented as of this encounter Progress Notes * Damaris Woody MD - 01/22/2023 10:21 PM EDT She is type 1, ozempic will not be covered Wegovy is being covered for obesity NOT diabetes She may simply have to wait until this is back in stock, I'm not sure there is much we can do * Hilary Fernández CNP - 01/22/2023 11:25 AM EDT Will defer plan/medication adjustments to Dr. Woody as there is a lower dose of Wegovy and Ozempic has already been trialed in the past. * Joe Sawyer MA - 01/22/2023 10:51 AM EDT Please see other encounter for refill. * Joe Sawyer MA - 01/20/2023 5:01 PM EDT Message sent to patient via gateway. Will call pt tomorrow if no response is received. documented in this encounter Plan of Treatment Upcoming Encounters Date Type Department Care Team (Late st Contact Info) Description 08/26/2025 1:20 PM EST Office Visit [facility] [address] [place] [address] Damaris Woody MD [address] [place] [address], 1st [place] [address] 11/25/2025 2:00 PM EDT Office Visit [facility] [address] [place] [address] Damaris Woody MD [address] [facility], 1st [place] [address] [email or web address] documented as of this encounter Visit Diagnoses Diagnosis Class 2 severe obesity with serious comorbidity and body mass index (BMI) of 35.0 to 35.9 in adult, unspecified obesity type documented in this encounter Care Teams Truck Dispatcher Relationship Specialty Start Date End Date Kathryn Mariscal MD PCP - General Internal Medicine 10/05/18 03/16/23 Sisi Alvarez FNP [address] [place] [phone] PCP - General 03/17/23 documented as of this encounter Additional Source Comments The information contained in this document represents components of the legal health record. It is not the complete legal health record.[facility]
--- OUTSIDE RECORDS SUMMARY | 2025-06-03 14:36 | XMS_ITS | Clinical Summary ---
Author Organization [facility] Address [address] [place] [address] Phone Care Team Providers Care Epic Stork Specialists Name Role Phone Meghan Ch MD Primary Care Provide r Social History Tobacco Use Types Packs/Day Years Used Date Smoking Tobacco: Never Assessed Comments Unknown Sex and Gender Information Value Date Recorded Sex Assigned at Not on file Legal Sex Female 11:41 AM EDT Gender Identity Not on file Sexual Orientation Not on file Plan of Treatment Upcoming Encounters Date Type Department Care Team ([facility] Contact Info) Description 08/02/2025 9:15 AM EST Office Visit [facility] [place] [address] [facility] [address] [place] [address] Marcio Fox, DPKlarissa [address] [place] [address] Health Maintenance Due Date Last Done Comments Breast Cancer Screening 1983 Diabetes: Annual GFR (Glomer ular Filtration Rate) 1983 Diabetes: Annual Foot Exam 1993 Diabetes: Annual Retina Eye Exam 1993 DTaP,Tdap,and Td Vaccines (1 - Tdap) 2002 Hepatitis B Vaccines (1 of 3 - 19+ 3-dose series) 2002 Pneumococcal Vaccine: Pediat rics (0 to 5 Years) and At-Risk Patients (6 to 49 Years) (1 of 2 - PCV) 2002 Cervical Cancer Screening: P ap Smear 2004 HPV Vaccines (1 - 3-dose SCD M series) 2010 Cholesterol Screening (Lipid Panel) 05/17/2024 HIV Screening 05/17/2024 Hepatitis C Screening 05/17/2024 Social Influencers of Health Screening 05/17/2024 Depression Screening 08/04/2024 COVID-19 Vaccine ( - 2023-2 5 season) 2025 Influenza Vaccine (#1) 2025 Diabetes: Annual Urine Albumin-Creatinine Ratio (uACR) 05/05/2025 Diabetes: Blood Sugar Contro l Test (HGBA1C) 05/05/2025 RSV Immunization Adult Patie nts (1 - 1-dose 75+ series) 2058 HIB Vaccines Aged Out No longer eligi ble based on patient's age to complete this topic Hepatitis A Vaccines Aged Out No long er eligible based on patient's age to complete this topic IPV Vaccines Aged Out No longer eligi ble based on patient's age to complete this topic MMR Vaccines Aged Out No longer eligi ble based on patient's age to complete this topic Meningococcal ACWY Vaccine Aged Out N o longer eligible based on patient's age to complete this topic Meningococcal B Vaccine Aged Out No l onger eligible based on patient's age to complete this topic RSV Immunization Patients Un lynn 20 months Aged Out No longer eligible b ased on patient's age to complete this topic Varicella Vaccines Aged Out No longer eligible based on patient's age to complete this topic Insurance [facility] Care Teams Epic St[employer] Specialists Relationship Specialty Start Date End Date Meghan Ch MD [address] [phone] PCP - General Internal Medicine 05/05/25
== END 2025-06-03 13:58 | disposition home or self-care (01) ==
LOC: HO.HOS 13:40
DX: M65.321 Trigger finger, right index finger (principal)
CPT/HCPCS: 99024

== ENCOUNTER 2025-07-13 15:41 | Outpatient (REF) | payer OTHER, MEDICAID, SELFPAY ==
--- NOTE | ~2025-07-13 | MM_ITS ---
EXAMINATION: MM SCREENING DIGITAL BREAST TOMOSYNTHESIS, BILATERAL CLINICAL INFORMATION: Screening. Asymptomatic. COMPARISON: Mammography: Baseline. TECHNIQUE: Digital breast mammography with tomosynthesis is performed in both the craniocaudal and mediolateral oblique views along with computer-aided detection (CAD). FINDINGS: The breasts are heterogeneously dense, which may obscure small masses. There are no significant masses, abnormal calcifications, or other abnormalities. MM/MM tomosynthesis screening BI IMPRESSION: No mammographic evidence of malignancy. ASSESSMENT: BI-RADS Category 1: Negative RECOMMENDATION: Routine annual mammography screening. 1 year F/U This examination should not preclude the clinical evaluation of a suspicious palpable abnormality. This patient's information was entered into a reminder system with a target due date for their next mammogram. Electronically signed by: Mora Parikh DO 07/15/2025 02:44 PM ISAURA
--- OUTSIDE RECORDS SUMMARY | 2025-07-14 00:19 | XMS_ITS | Encounter Summary ---
Author Organization [employer] Address [address] [facility] 7 [place] [address] Care Team Providers Care Planner Intern Name Role Phone Meghan Ch MD Primary Care Provide r Encounter Details Date Type Department Care Team ([facility] st Contact Info) Description 02/21/2025 Orders Only [facility] [address] [place], [place] [phone] Meghan Ch MD 230 [place], [place] [phone] Social History Tobacco Use Types Packs/Day Years Used Date Smoking Tobacco: Never Passive Smoke Exposure: Never Smokeless Tobacco: Never Depression Answer Date Recorded Patient Health Questionnaire-9 Score 0 09/02/2023 Patient Health Questionnaire-9 Score 0 09/02/2023 Last PHQ-9: Questionnaire Data Not on file 0 09/02/2023 Housing Stability Answer Date Recorded What is your housing situation today? I have mona gonzalez 09/02/[address] you li ve. Do you have problems with any of the following? None of the above 09/02/2023 Food Insecurity Answer Date Recorded Within the past 12 months, y ou worried that your food would run out before you got money to buy more: Never True 09/02/2023 Within the past 12 months,th e food you bought just didn't last and you didn't have enough money to get more: Never True Transportation Answer Date Recorded In the past 12 months, has l ack of transportation kept you from medical appts, meetings, work or from getting things needed for daily living? No 09/02/2023 Utilities Answer Date Recorded In the past 12 months, has t he electric, gas, oil or water company threatened to shut off services in your home? No 09/02/2023 Depression Answer Date Recorded Patient Health Questionnaire-2 Score 0 09/02/2023 Comments No Sex and Gender Information Value Date Recorded Sex Assigned at Female 06/03/2022 10:17 AM EDT Legal Sex Female 10:17 AM EDT Gender Identity Female 06/03/2022 10:17 AM EDT Sexual Orientation Straight 06/03/2022 10 :17 AM EDT documented as of this encounter Plan of Treatment Upcoming Encounters Date Type Department Care Team (Late st Contact Info) Description 07/21/2025 3:30 PM EST Office Visit [facility] [address] [place] [address] Meghan Ch MD [address] [place] [phone] documented as of this encounter Visit Diagnoses Not on filedocumented in this encounter Additional Health Concerns Assessment Noted Time PHQ-9 Depression Total Score: 0 09/02/19 24 11:10 AM EST documented as of this encounter Care Teams Planner Intern Relationship Specialty Start Date End Date Meghan Ch MD [address] [place] [phone] PCP - General Family Medicine 07/13/20 documented as of this encounter
--- OUTSIDE RECORDS SUMMARY | 2025-07-14 00:19 | XMS_ITS | Encounter Summary ---
Author Organization [employer] Address [address] [place] [address] 7 [place] [address] Care Team Providers Care Bill Collector Name Role Phone Meghan Ch MD Primary Care Provide r Encounter Details Date Type Department Care Team (Latest Contact Info) Description 06/14/2019 Abstract [facility] CONVERSIONS Dental, Provider, DDS Social History Tobacco Use Types Packs/Day Years [...] Description 07/21/2025 3:30 PM EST Office Visit [facility] [address] [place] [phone] Meghan Ch MD 230 [place] [address] documented as of this encounter Visit Diagnoses Not on filedocumented in this encounter Care Teams Bill Collector Relationship Specialty Start Date End Date Meghan Ch MD [address] [place] [phone] PCP - General Family Medicine 07/13/20 documented as of this encounter
--- OUTSIDE RECORDS SUMMARY | 2025-07-14 00:19 | XMS_ITS | Encounter Summary ---
Author Organization [employer] Address [address] [place] [address] 7 [place] [address] Care Team Providers Care Deck Steward Name Role Phone Meghan Ch MD Primary Care Provide r Encounter Details Date Type Department Care Team (Late st Contact Info) Description 07/31/2023 Orders Only [facility] [address] [place] [phone] Meghan Ch MD [address] [place] [address] [phone] Attention deficit hyperactivity disorder (ADHD), unspecified ADHD type (Primary Dx) Social History Tobacco Use Types Packs/Day Years [...] Description 07/21/2025 3:30 PM EST Office Visit [facility] [address] [place] [address] [phone] Meghan Ch MD [address] [place] [address] [phone] documented as of this encounter Visit Diagnoses Diagnosis Attention deficit hyperactivity disorder (ADHD), unspecified ADHD type- Primary documented in this encounter Care Teams Deck Steward Relationship Specialty Start Date End Date Meghan Ch MD 230 [place] [address] PCP - General Family Medicine 07/13/20 documented as of this encounter
--- OUTSIDE RECORDS SUMMARY | 2025-07-14 00:19 | XMS_ITS | Encounter Summary ---
Demographics Address [address] [place] [address] Mobile Phone Home Phone Work Phone Email Address Preferred Language Turkmen Marital Status Unknown Confucianism Affiliation Unknown Race White Ethnic Group or Author Organization [facility] Address [address] [facility] [address] [place] [phone] Phone Care Team Providers Care Drywall Carrier Name Role Phone Kathryn Aguirre MD Primary Care Provider + Sisi Alvarez Primary Care Prov ider Reason for Visit * Reason Comments Med Change Request Encounter Details Date Type Department Care Team ([facility] Contact Info) Description 01/20/2023 Refill [facility] [address] [place] [phone] Damaris Woody MD [address] [facility], 1st [place] [address] [email or web address] Med Change Request Social History Tobacco Use [...] 08/26/2025 1:20 PM EST Office Visit [facility] [address] [place] [address] Damaris Woody MD [address] [place] [address], 1st [place] [address] 11/25/2025 2:00 PM EDT Office Visit [facility] [address] [place] [address] Damaris Woody MD [address] [facility], 1st [place] [address] [email or web address] documented as of this encounter Visit Diagnoses Diagnosis Class 2 severe obesity with serious comorbidity and body mass index (BMI) of 35.0 to 35.9 in adult, unspecified obesity type documented in this encounter Care Teams Drywall Carrier Relationship Specialty Start Date End Date Kathryn Aguirre MD PCP - General Internal Medicine 10/05/18 03/16/23 Sisi Alvarez FNP [address] [place] [phone] PCP - General 03/17/23 documented as of this encounter Additional Source Comments The information contained in this document represents components of the legal health record. It is not the complete legal health record.[facility]
--- OUTSIDE RECORDS SUMMARY | 2025-07-14 00:19 | XMS_ITS | Encounter Summary ---
Author Organization [employer] Address [address] [facility] 7 [place] [address] Care Team Providers Care Fig Caprifier Name Role Phone Meghan Ch MD Primary Care Provide r Encounter Details Date Type Department Care Team ([facility] Contact Info) Description 05/16/2025 Results Follow-Up [facility] [address] [place] [address] Chelsea Zuñiga MD [address] [place] [address] Culture, Urine, Routine Social History Tobacco Use Types Packs/Day Years [...] Description 07/21/2025 3:30 PM EST Office Visit [facility] [address] [place] [address] Meghan Ch MD [address] [place] [address] documented as of this encounter Visit Diagnoses Not on filedocumented in this encounter Additional Health Concerns Assessment Noted Time PHQ-9 Depression Total Score: 0 09/02/19 24 11:10 AM EST documented as of this encounter Care Teams Fig Caprifier Relationship Specialty Start Date End Date Meghan Ch MD [address] [place] [phone] PCP - General Family Medicine 07/13/20 documented as of this encounter
--- OUTSIDE RECORDS SUMMARY | 2025-07-14 00:19 | XMS_ITS | Clinical Summary ---
Author Organization [employer] Address [address] [place] [address] 7 [place] [address] Care Team Providers Care Director Pharmacology Name Role Phone Meghan Ch MD Primary Care Provide r Allergies No known active allergies Medications Insulin Pump Accessories misc insulin pump, Refills 0, Maintenance, 04/03/20 9:19:00 EDT, Supply 0 Active HumaLOG 100 UNIT/ML solution INJECT UP TO 70 UNITS VIA INSULIN PUMP DAILY DIRECTED Active Accu-Chek Guide test strip USE DIRECTED 6 TIMES A DAY 4 Active Gvoke HypoPen 2-Pack 1 MG/0.2ML injection Inject 1 mg under the skin 1 (one) time if needed. 3 Active atorvastatin (Lipitor) 10 MG tablet Take 10 mg by mouth Once per day. Active insulin lispro (HumaLOG) 100 UNIT/ML patient supplied pump 3 Active lisdexamfetamine (Vyvanse) 50 MG capsule take 1 capsule by mouth every day in the morning 5 Active terbinafine (LamISIL) 250 MG tabletIndication s:Onychomycosis Take 1 tablet (250 mg) by mouth Once per day. 90 tablet 5 07/31/20 25 Active Hospital, Clinic, or Other Facility Administered Medication Ordered Dose Route Frequency Start Date End Date Status lidocaine (Xylocaine) 2 % injection 80 mgIndications:Spasm of both trapezius muscles 80 mg IJ Once 03/08/2025 Active Active Problems Problem Noted Date Diagnosed Date Onychomycosis 05/02/2025 Assessment & Plan (05/02/2025 4:33 PM EDT): I will treat her with terbinafine to 250 mg daily for 12 weeks, LFTs will be checked with labs Sinus tachycardia 05/02/2025 Assessment & Plan (05/02/2025 4:32 PM EDT): I will order TSH and I decided to refer her to cardiology SOB (shortness of breath) on exertion 05/02/2025 Assessment & Plan (05/02/2025 4:32 PM EDT): I decided to refer her to cardiology Breast cancer screening by mammogram 05/02/2025 Calcific tendonitis of right thigh 02/22/2025 Assessment & Plan (02/22/2025 10:10 AM EDT): Discussed with patient regarding strengthening exercises, she will be referred to PT Take meloxicam daily x 5 to 7 days + Tylenol as needed breakthrough pain + diclofenac gel to affected area x 1 week. Apply heat to affected area and follow-up with PCP, may need trigger point injections Spasm of both trapezius muscles 11/16/2024 Trigger finger of all digits of left hand 2024 Bilateral hand numbness 11/15/2024 Sacral nerve stimulator present 11/15/2024 Mixed anxiety and depressive disorder 01/16/2024 ADHD 09/02/2023 Assessment & Plan (12/04/2023 11:43 AM EDT): I will increase her medication methylphenidate to 20mg BID RTC 6 weeks Assessment & Plan (11/20/2023 4:16 PM EDT): Today I discontinue adderall and I will start her on methylphenidate 10mg BID RTC 2 weeks televisit Assessment & Plan (10/23/2023 4:17 PM EDT): C/w adderal 25mg daily Assessment & Plan (10/01/2023 4:24 PM EST): I will go up on adderal to 25mg daily Assessment & Plan (09/03/2023 11:37 AM EST): counseling done C/w therapist (patient reports she really likes her current therapist) I will bring up her dose to vyvanse 50mg daily Anxiety with depression 09/02/2023 Assessment & Plan (12/04/2023 11:42 AM EDT): C/w fluoxetine 60mg daily Continue with therapist Assessment & Plan (11/20/2023 4:15 PM EDT): Stable c/w current interventions Assessment & Plan (10/23/2023 4:17 PM EDT): I will increase fluoxetine to 60mg daily Assessment & Plan (10/01/2023 4:24 PM EST): I stopped duloxetin and re-started again her fluoxetine 40mg daily C/w therapist sessions Assessment & Plan (09/03/2023 11:48 AM EST): C/w therapist Patient is on waiting list for new psychiatrist I will tried to switch fluoxetine to duloxetine RTC 4 weeks Hyperlipidemia 03/17/2023 Class 1 drug-induced obesity with serious comorbidity and body mass index (BMI) of 34.0 to 34.9 in adult 12/06/[address] 11/13/2018 Dyslipidemia 09/28/2018 Urinary tract infectious disease 01/09/2018 Type 1 diabetes mellitus with hyperglycemia 11/03 Assessment & Plan (05/02/2025 4:33 PM EDT): Continue to follow with endocrinology Labs ordered today Assessment & Plan (02/22/2025 10:10 AM EDT): A1c is at goal, continue insulin pump and follow-up with database software technician. Microalbuminuria 01/07/2013 Mild nonproliferative diabetic retinopathy 01/07 Obesity 02/28/2012 Encounters Date Type Department Care Team Description 07/12/2025 Patient Outreach [address] [address] Meghan Ch MD Pre-visit Planning (SDOH screening negative and tobacco screening negative) 05/17/2025 Orders Only [address] [address] Meghan Ch MD Vaginal itching (Primary Dx) 05/16/[address] [address] Meghan Ch MD dec recall 05/16/2025 Results Follow-Up [address] [address] Chelsea Zuñiga MD Culture, Urine, Routine 05/12/2025 Orders Only [address] [address] Chelsea Zuñiga MD 05/11/2025 9:20 AM EDT Office Visit [facility] [address] [place] [address] Chelsea Zuñiga MD Pyelonephritis (Primary Dx); UTI symptoms 05/11/2025 Travel 05/02/2025 3:15 PM EDT Office Visit [address] [address] Meghan Ch MD Onychomycosis; Type 1 diabetes mellitus with hyperglycemia ([facility]/HCC); Sinus tachycardia; SOB (shortness of breath) on exertion; Breast cancer screening by mammogram 05/02/2025 Travel 04/27/[address] [address] Meghan Ch MD telephone call from Last 3 Months Immunizations Immunization Administration Dates Next Due Hep B, Adolescent or Pediatric 08/17/2007,2006,10/17/2006 Hep B, adult 06/10/2019 Influenza Injectable Quadriv alant Preservative Free IIV4 MDCK 04/18/2023,04/19/2021 Influenza injectable quadriv alent IIV4 with preservative 04/14/2019,04/15/2018,04/12/2015 Influenza injectable quadriv alent preservative free 06/06/2022,05/11/2020 Influenza, IIV3, injectable 04/15/2012 Influenza, Unspecified 08/07/2022,04/04/2021 Influenza, seasonal, injecta ble, preservative free 08/06/2024 MMR 07/10/2011 Pfizer Covid-19 Vaccine 12+ 08/06/2024 Pneumococcal Polysaccharide PPSV23 03/20/2009 TD (adult), 2 Lf tetanus tox oid, preservative free, adsorbed 11/07/2006 Tdap 08/17/2021,07/10/2011 Varicella 07/10/2011 Social History Tobacco Use Types Packs/Day Years Used Date Smoking Tobacco: Never Passive Smoke Exposure: Never Smokeless Tobacco: Never Tobacco Cessation:Counseling Given: Not Answered Depression Answer Date Recorded Patient Health Questionnaire-9 Score 0 09/02/2023 Patient Health Questionnaire-9 Score 0 09/02/2023 Last PHQ-9: Questionnaire Data Not on file 0 09/02/2023 Housing Stability Answer Date Recorded What is your housing situation today? I have mona gonzalez 07/12/[address] you li ve. Do you have problems with any of the following? None of the above 07/12/2025 Food Insecurity Answer Date Recorded Within the past 12 months, y ou worried that your food would run out before you got money to buy more: Never True 07/12/2025 Within the past 12 months,th e food you bought just didn't last and you didn't have enough money to get more: Never True 04/2025 Transportation Answer Date Recorded In the past 12 months, has l ack of transportation kept you from medical appts, meetings, work or from getting things needed for daily living? No 07/12/2025 Utilities Answer Date Recorded In the past 12 months, has t he electric, gas, oil or water company threatened to shut off services in your home? No 07/12/2025 Depression Answer Date Recorded Patient Health Questionnaire-2 Score 0 09/02/2023 Internet Access Answer Date Recorded Internet Access Q1 Yes 07/12/2025 Internet Access Q2 Not on file 07/12/2025 Comments No Sex and Gender Information Value Date Recorded Sex Assigned at Female 06/03/2022 10:17 AM EDT Legal Sex Female 10:17 AM EDT Gender Identity Female 06/03/2022 10:17 AM EDT Sexual Orientation Straight 06/03/2022 10 :17 AM EDT Last Filed Vital Signs Vital Sign Reading Time Taken Comments Blood Pressure 131/79 05/11/2025 9:12 AM EDT Pulse 90 05/11/2025 9:12 AM EDT Temperature 36.6 C (97.9 F) 05/11/2025 9:12 AM EDT Respiratory Rate 16 05/11/2025 9:12 AM EDT Oxygen Saturation 98% 05/11/2025 9:12 AM EDT Inhaled Oxygen Concentration - - Weight 70.3 kg (155 lb) 05/11/2025 9:12 AM EDT Height 152.4 cm (5') 05/02/2025 3:27 PM EDT Body Mass Index 30.27 05/02/2025 3:27 PM EDT Plan of Treatment Upcoming Encounters Date Type Department Care Team (Late st Contact Info) Description 07/21/2025 3:30 PM EST Office Visit [facility] [address] [place] [address] Meghan Ch MD [address] [place] [address] Health Maintenance Due Date Last Done Comments HIV Screening 1983 Diabetes: Foot Exam 1993 Eye Exam 1993 Alcohol/Substance Use Screening 1995 Family Planning (PISQ) 1998 HPV Vaccines (1 - 3-dose series) 1998 Hepatitis C Screening 2001 Pneumococcal Vaccine: Pediatrics (0 to 5 Years) and At-Risk Patients (6 to 49) Years (2 of 2 - PCV) 03/20/2010 03/20/2009 Hepatitis B Vaccines (2 of 3 - 19+ 3-dose series) 07/08/2019 06/10/2019, 08/17/2007, 11/07/2006, Additional history exists Mammogram 2023 Depression Screening 09/02/2024 09/02/2023, 09/02/19 24 COVID-19 Vaccine ( season) 2025 08/06/2024, 04/18/2023, 06/06/2022, Additional history exists Influenza Vaccine (#1) 2025 , 04/18/2023, 08/07/2022, Additional history exists Diabetes: Hemoglobin A1C 05/25/2025 025, 12/10/2024, 06/25/2024, Additional history exists Disability Screening 08/11/2025 08/11/2024 Diabetes: Urine Protein Screening 05/11/2026 05/11/2025, 05/16/2021 Lipid Panel 05/11/2026 05/11/2025, 02/0 01/2023, 05/16/2021, Additional history exists Tobacco Screening 05/11/2026 05/11/2025 SDOH Screening 07/12/2026 07/12/2025 HPV/Cotest 12/31/2029 12/31/2024 Pap Smear 12/31/2029 12/31/2024 DTaP/Tdap/Td Vaccines (3 - Td or Tdap) 08/17/2031 08/17/2021, 07/10/2011, 11/07/2006 Zoster Vaccines (1 of 2) 2033 RSV Patients and Patients Aged 60 years or older (1 - 1-dose 75+ series) 2058 HIB [...] patient's age to complete this topic Meningococcal Vaccine Aged Out No eren yue eligible based on patient's age to complete this topic RSV under 20 months Aged Out No longe r eligible based on patient's age to complete this topic Rotavirus Vaccines Aged Out No longer eligible based on patient's age to complete this topic Procedures Procedure Name Priority Date/Time Associated Diagnosis Comments CULTURE, URINE, ROUTINE Routine 05/12/2025 12:00 AM EDT URINALYSIS, COMPLETE, WITH REFLEX TO CULTURE Routine 05/11/2025 9:50 AM EDT Pyelonephritis POCT URINALYSIS DIPSTICK Routine 05/11/2025 9:18 AM EDT UTI symptoms ALBUMIN, RANDOM URINE W/CREATININE Routine 05/11/2025 8:11 AM EDT Type 1 diabetes mellitus with hyperglycemia (HCC) LIPID PANEL, STANDARD Routine 05/11/2025 8:11 AM EDT Type 1 diabetes mellitus with hyperglycemia (HCC) TSH W/REFLEX TO FT4 Routine 05/11/2025 8 :11 AM EDT Sinus tachycardia HEPATIC FUNCTION PANEL Routine 05/11/2025 8:11 AM EDT Onychomycosis POCT GLYCATED HEMOGLOBIN, TOTAL Routine 02/22/2025 10:00 AM EDT Type 1 diabetes mellitus with hyperglycemia (CMS/HCC) HM PAP/HPV Routine 12/31/2024 from Last 3 Months or Most Recently Relevant to Health Maintenance Results * Culture, Urine, Routine (05/12/2025 12:00 AM EDT) Urine Urine specimen obtained by clean catch procedure / Unknown 05/12/2025 05/12/2025 Comment:[facility] - 05/15/2025 7:55 AM EDT Enterococcus faecalis Quant > 100,000 cfu/mL Staphylococcus epidermidis Quant 50,000 to 100,000 cfu/mL Enterococcus faecalis: Ampicillin <=2(S) Enterococcus faecalis: Levofloxacin 0.5(S) Enterococcus faecalis: Nitrofurantoin <=16(S) Enterococcus faecalis: Tetracycline >=16(R) Enterococcus faecalis: Vancomycin 1(S) Staphylococcus epidermidis: Clindamycin <=0.25(S) Staphylococcus epidermidis: Erythromycin >=8(R) Staphylococcus epidermidis: Nitrofurantoin <=16(S) Staphylococcus epidermidis: Oxacillin <=0.25(S) Staphylococcus epidermidis: Penicillin-G >=0.5(R) Staphylococcus epidermidis: Tetracycline 2(S) Staphylococcus epidermidis: Trimethoprim/Sulfamethoxazole >=320(R) Specimen Source: Urine clean catch Chelsea Zuñiga MD LAB MICROBIOLOGY - GENERAL ORDERABLES Final Result Performing Organization Address [facility]/ZIP Co de Phone Number [facility] [address] [place] [phone] * (ABNORMAL) Urinalysis, Complete, with Reflex to Culture (05/11/2025 9:50 AM EDT) Color Urine Dark Yellow [facility] Appearance Urine Cloudy [facility] PH 6.5 5.0 - 9.0 [facility] Glucose Urine UA Negative Negative mg/dL [facility] Urine Blood Negative Negative [facility] Specific Chase - Urine 1.020 1.005 - 1.025 [facility] Urine Protein Trace Neg-Trace mg/dL [facility] Urine Ketones Trace Negative mg/dL [facility] Nitrite Urine Positive(A) Negative [facility] Leukocyte Esterase Urine Moderate (2+)(A) Negative [facility] RBC Urine 0-2 0 - 2 /HPF [facility] Urine WBC 6-10(A) 0 - 5 /HPF [facility] Urine Squamous Epithelial Cell 11-20 0 - 2 /HPF [facility] Urine Bacteria 3+ None Seen [facility] Hyaline Casts, Urine 0-2 0 - 2 /LPF [facility] Urine 05/11/2025 9:50 AM EDT 05/12/2025 12:39 PM EDT Narrative [facility] - 05/12/2025 1:19 PM EDT Urine, Clean Catch Chelsea Zuñiga MD LAB URINE ORDERABLES Final Result Performing Organization Address [facility] Co de Phone Number [facility] [address] [place] [address] [phone] * (ABNORMAL) POCT urinalysis dipstick manually resulted (05/11/2025 9:18 AM EDT) Color, UA Sofía Clarity, UA Clear Glucose, UA Negative Bilirubin, UA Few 15 Ketones, UA Positive Comment:Trace Spec Grav, UA 1.015 Blood, UA Negative Negative, None Detected pH, UA 7.0 Protein, UA 2+ 125++ Comment:100Mg Urobilinogen, UA 1.0 Leukocytes, UA Many(A) Negative, Rare, Trace Comment:Large Nitrite, UA Positive(A) Negative, None Detected Appearance, UA OK Urine 05/11/2025 9:18 AM EDT us Chelsea Zuñiga MD POINT OF CARE TEST ENTER/E DIT ORDERABLES Final Result * TSH W/Reflex to FT4 (05/11/2025 8:11 AM EDT) Pathologist [facility] TSH reflex Free T4 0.42 0.32 - 4.0 uIU/mL [facility] Blood Venous blood specimen / Unknown 05/11/2025 8:11 AM EDT 05/11/2025 11:37 AM EDT us Meghan Wiggins MD LAB BLOOD ORDERABLES Final Result [facility] [address] [place] [phone] * Albumin, Random Urine W/Creatinine (05/11/2025 8:11 AM EDT) Creatinine, Urine 109.37 mg/dL [facility] Microalbumin Urine 11.0 mg/L [facility] Microalbum Creatinine Ratio Ur 10.0 <30 ug/mg cr [facility] Comment:Albumin/Creatinine R atio Reference Ranges: Normal: < 30 ug/mg creatinine Microalbuminuria: 30 - 300 ug/mg creatinineClinical Albuminuria: > 300 ug/mg creatinine Urine (Urine, Random) 05/11/2025 8:11 AM EDT 05/11/2025 11:21 AM EDT us Meghan Wiggins MD LAB URINE ORDERABLES Final Result Performing Organization Address [facility]/ZIP Co de Phone Number [facility] [address] [place] [phone] * Hepatic Function Panel (05/11/2025 8:11 AM EDT) Bilirubin, Total 0.4 0.0 - 1.0 mg/dL [facility] Bilirubin, Direct 0.1 0.0 - 0.5 mg/dL [facility] Aspartate Amino Transferase 19 5 - 31 U/L [facility] Alanine Aminotransferase 13 0 - 31 U/L [facility] Total Protein 6.9 6.5 - 8.0 g/dL [facility] Albumin Level 4.2 3.5 - 5.0 g/dL [facility] Alkaline Phosphatase 82 39 - 117 U/L [facility] Blood Venous blood specimen / Unknown 05/11/2025 8:11 AM EDT 05/11/2025 11:37 AM EDT us Meghan Wiggins MD LAB BLOOD ORDERABLES Final Result Performing Organization Address [facility] Co de Phone Number [facility] [address] [place] [phone] * (ABNORMAL) Lipid Panel, Standard (05/11/2025 8:11 AM EDT) Triglycerides 65 <150 mg/dL [facility] Comment:Desirable Triglyceri de: less than 150 mg/dLBorderline High Triglyceride 150-199 mg/dLHigh Triglyceride: 200-499 mg/dLVery High Triglyceride: greater than or equal to 5OO mg/dL Cholesterol 172 <200 mg/dL [facility] Comment:Desirable Cholestero l: less than 200 mg/dLBorderline High Cholesterol: 200-239 mg/dLHigh Cholesterol: greater than 239 mg/dL LDL Cholesterol Calculated 106(H) <100 mg/dL [facility] Comment:Desirable LDL: less than 100 mg/dLNear Optimal/Above Optimal LDL: 110- 129 mg/dLBorderline High LDL: 130-159 mg/dLHigh LDL: 160-189 mg/dLVery High LDL: greater than or equal to 190 mg/dL HDL Cholesterol 53 >40 mg/dL [facility] Comment:Desirable HDL: great er than 40 mg/dL Note: This HDL assay may give artificially low results in patients with liver disease. Blood Venous blood specimen / Unknown 05/11/2025 8:11 AM EDT 05/11/2025 11:37 AM EDT Meghan Wiggins MD LAB BLOOD ORDERABLES Final Result [facility] [address] [place] [phone] * (ABNORMAL) POCT HGB A1C (02/22/2025 10:00 AM EDT) Hemoglobin A1C 7.3(A) 4.0 - 5.7 % QC Media Lot # [id number] Lot# Expiration Date Blood 02/22/2025 10:0 0 AM EDT Cari Borrego MD POINT OF CARE TEST ENTER /EDIT ORDERABLES Final Result * HM PAP/HPV (12/31/2024) Pap Smear 1. NILM 1. NILM HPV Not Detected Undetected, Indeterminat e, Quantitative , Not Detected Historical Provider HEALTH MAINTENANCE Final Result from Last 3 Months or Most Recently Relevant to Health Maintenance Insurance [facility] Care Teams Director Pharmacology Relationship Specialty Start Date End Date Meghan Ch MD [address] [place] [phone] PCP - General Family Medicine 07/13/20
--- OUTSIDE RECORDS SUMMARY | 2025-07-14 00:19 | XMS_ITS | Encounter Summary ---
Author Organization [employer] Address [address] [facility] 7 [place] [address] Care Team Providers Care Slate Trimmer Name Role Phone Meghan Ch MD Primary Care Provide r Reason for Visit * Reason Comments Pre-visit Planning SDOH screening negat jaclyn and tobacco screening negative Encounter Details Date Type Department Care Team ([facility] st Contact Info) Description 07/12/2025 Patient Outreach [facility] [address] [place] [address] Meghan Ch MD [address] [place] [address] Pre-visit Planning (SDOH screening negative and tobacco screening negative) Social History Tobacco Use Types Packs/Day Years Used Date Smoking Tobacco: Never Passive Smoke Exposure: Never Smokeless Tobacco: Never Depression Answer Date Recorded Patient Health Questionnaire-9 Score 0 09/02/2023 Patient Health Questionnaire-9 Score 0 09/02/2023 Last PHQ-9: Questionnaire Data Not on file 0 09/02/2023 Housing Stability Answer Date Recorded What is your housing situation today? I have monamarika gonzalez 07/12/[address] you [...] AM EDT documented as of this encounter Progress Notes * Tabatha Roe - 07/12/2025 9:49 AM EST CC Tabatha placed successful outbound call to patient for pre-visit planning. Patient name and confirmed. Patient confirms appt date and time, and has transportation. Biggest concern for appointment at this time is none Patient advised to bring to appointment a photo id and insurance card. Appropriate screenings completed in anticipation of appointment. documented in this encounter Plan of Treatment Upcoming Encounters Date Type Department Care Team (Late st Contact Info) Description 07/21/2025 3:30 PM EST Office Visit [facility] [address] [place] [address] Meghan Ch MD [address] [place] [address] documented as of this encounter Visit Diagnoses Not on filedocumented in this encounter Additional Health Concerns Assessment Noted Time PHQ-9 Depression Total Score: 0 09/02/19 24 11:10 AM EST documented as of this encounter Care Teams Slate Trimmer Relationship Specialty Start Date End Date Meghan Ch MD [address] [place] [address] PCP - General Family Medicine 07/13/20 documented as of this encounter
--- OUTSIDE RECORDS SUMMARY | 2025-07-14 00:19 | XMS_ITS | Clinical Summary ---
Demographics Address [address] [place] [address], [address] [place] [address] Mobile Phone Home Phone Work Phone Email Address Preferred Language [place] Citizen Marital Status Unknown Restorationism Affiliation Unknown Race White Ethnic Group or Author Organization [facility] Address [address] [place] [id number] Phone Care Team Providers Care Mechanical Supervisor Name Role Phone VitorTresanSisi Gabbie [facility] Primary Care Prov ider Allergies No known active allergies Medications Medication-Free Text Reservior 3ml as directed Miscellaneous, Sig: as directed 03/15/20 14 Active Medication-Free Text Silhouette 13mm as directed Miscellaneous, Sig: as directed change Q1-2 days Active [employer] 3 Juyd by Miscellaneous route. Active acetone, urine, test [...] also advised to reschedule her visit with cosmetology educator/RD; she is encouraged to reach out [...] encouraged to return for visit with our cosmetology educator staff Ekta has been started on [...] CGM consistently We discussed the newly available Patient Feed CGM for the Medtronic 780G available today, [...] of upgrading her insulin pump software through [facility] Encouraged to continue all of her excellent [...] in 6 months, she will return for [employer] training in the near future once [...] Type Department Care Team Description 04/30/2025 Refill [facility] [address] [place] [address] [place] [address] Damaris Woody MD Medication Refill 04/25/2025 2:40 PM EDT Office Visit [facility] [address] [place] [address] Damaris Woody MD Type 1 diabetes mellitus [...] Description 08/26/2025 1:20 PM EST Office Visit [facility] [address] [place] [address] [place] [address] Damaris Woody MD [address] [place] [address], [address] [place] [phone] 11/25/2025 2:00 PM EDT Office Visit [facility] [address] [place] [address] [place] [address] Damaris Woody MD [address] [place] [address], [address] [place] [phone] Health Maintenance Due Date Last Done Comments [...] Hemoglobin A1c 8.0(A) 4.2 - 5.6 % [facility] Other 12/10/2024 1:09 PM EDT Damaris Woody MD LAB POCT ENTER/EDIT ORDERABLES Final Result [facility] [address] [place] [address], [facility] * Microalbumin/creatinine ratio, random urine (09/09/2022 12:53 PM EST) URINE MICROALBUMIN 1.2 0 - 2.3 mg/dL [facility] URINE CREATININE 70 mg/dL [facility] MICROALB/CRE RATIO 17.1 0 - 20 mg/g Cre [facility] Urine (Urine) 09/09/2022 12: 53 PM EST 09/09/2022 1:03 PM EST Damaris Woody MD LAB URINE ORDERABLES Final Resu lt [address] [address] from Last 3 Months or Most Recently Relevant to Health Maintenance Insurance [facility] HMO Member Subscriber Plan / Payer (Ef fective 2017-Present) Name:Ekta Reid Relation to Subscriber:Self Name:Ekta Reid Payer ID:Not on file Type:HMO Address: [address] [employer] [place] [facility] HMO Member Subscriber Plan / Payer (Ef fective 2017-Present) Name:Ekta Reid Relation to Subscriber:Self Name:Ekta Reid Payer ID:Not on file Type:HMO Address: [address] [employer]AF[employer] [address] [place], [place] [address] [place], [place] [address] [place] [address] HMO Member Subscriber Plan / Payer (Ef fective 2017-Present) Name:JeanetteEkta wylie Relation to Subscriber:Self Name:Ekta Reid Payer ID:Not on file Type:HMO Address: [address] [facility] HMO [facility] HMO PARTIAL [facility] HMO Member Subscriber Plan / Payer (Ef fective 2017-Present) Name:Ekta Reid Relation to Subscriber:Self Name:Ekta Reid Payer ID:Not on file Type:HMO Address: [address] [employer]AFETY NET [facility] Sub[facility] Plan / Payer (Ef fective 2017-Present) Name:Ekta Reid Relation to Subscriber:Self Name:Jeanette, Ekta Payer ID:Not on file Type:HMO Address: [address] [place] [address] , [place] [address] , [place] [address] , [place] [address] , [place] [address] , [place] [address] , [place] [address] , [place] [address] , [place] [address] Care Teams Mechanical Supervisor Relationship Specialty Start Date End Date Sisi Alvarez FNP [address] [place] [address] [address] [place] [address] PCP - General 03/17/23 Additional Source Comments The information contained in this document represents components of the legal health record. It is not the complete legal health record.[facility]
--- OUTSIDE RECORDS SUMMARY | 2025-07-14 00:19 | XMS_ITS | Encounter Summary ---
Author Organization [employer] Address [address] [facility] 7 [place] [address] Care Team Providers Care Tracer Clerk Name Role Phone Meghan Ch MD Primary Care Provide r Encounter Details Date Type Department Care Team ([facility] st Contact Info) Description 10/28/2023 Orders Only [facility] [address] [place] [address] Meghan Ch MD [address] [place] [address] Social History Tobacco Use Types Packs/Day Years [...] Patient Health Questionnaire-2 Score 0 09/02/2023 Comments Unknown Sex and Gender Information Value [...] Description 07/21/2025 3:30 PM EST Office Visit [facility] [address] [place] [address] Meghan Ch MD [address] [place] [address] documented as of this encounter Visit Diagnoses Not on filedocumented in this encounter Additional Health Concerns Assessment Noted Time PHQ-9 Depression Total Score: 0 09/02/19 24 11:10 AM EST documented as of this encounter Care Teams Tracer Clerk Relationship Specialty Start Date End Date Meghan Ch MD [address] [place] [phone] PCP - General Family Medicine 07/13/20 documented as of this encounter
--- OUTSIDE RECORDS SUMMARY | 2025-07-14 00:19 | XMS_ITS | Encounter Summary ---
Author Organization [employer] Address [address] [facility] 7 [place] [address] Care Team Providers Care Manager Of Hospital Name Role Phone Meghan Ch MD Primary Care Provide r Encounter Details Date Type Department Care Team ([facility] st Contact Info) Description 11/05/2024 Orders Only [facility] [address] [place], [place] [phone] Meghan Ch MD [address] [place], [place] [phone] Social History Tobacco Use Types Packs/Day Years [...] Description 07/21/2025 3:30 PM EST Office Visit [facility] [address] [place] [address] Meghan Ch MD [address] [place] [address] documented as of this encounter Visit Diagnoses Not on filedocumented in this encounter Additional Health Concerns Assessment Noted Time PHQ-9 Depression Total Score: 0 09/02/19 24 11:10 AM EST documented as of this encounter Care Teams Manager Of Hospital Relationship Specialty Start Date End Date Meghan Ch MD [address] [place] [phone] PCP - General Family Medicine 07/13/20 documented as of this encounter
--- OUTSIDE RECORDS SUMMARY | 2025-07-14 00:19 | XMS_ITS | Clinical Summary ---
Author Organization [address] [facility] Address [address] [place] [address] Phone Care Team Providers Care Pilot Boat Captain Name Role Phone Meghan Ch MD Primary [...] AM EST Office Visit [facility] [place] [address] [phone] Marcio Fox DPM [address] [phone] Health Maintenance Due Date Last Done Comments [...] Screening 05/17/2024 Depression Screening 08/04/2024 COVID-19 Vaccine (1 - 2024-2 6 season) 2025 Influenza Vaccine (#1) 2025 Diabetes: [...] patient's age to complete this topic Insurance [facility] Care Teams Pilot Boat Captain Relationship Specialty Start Date End Date Meghan Ch MD [address] [place] [phone] PCP - General Internal Medicine 05/05/25
== END 2025-07-13 15:42 | disposition home or self-care (01) ==
LOC: HO.MAMMO 15:41
PROVIDERS: PCP Internal Medicine; Visit Provider Internal Medicine
DX: Z12.31 Encounter for screening mammogram for malignant neoplasm of breast (principal)
CPT/HCPCS: 77063; 77067

== ENCOUNTER → 2025-07-13 15:45 | Outpatient (BNV) | payer OTHER, MEDICAID, SELFPAY | PROVIDERS: PCP Internal Medicine; Visit Provider Internal Medicine | DX: Z12.31 Encounter for screening mammogram for malignant neoplasm of breast (principal) | CPT/HCPCS: 77063; 77067 ==